=== PATIENT | female | born 1985 | race American Indian/Alaskan Native ===

== ENCOUNTER 2020-11-22 10:16 | Outpatient (REF) | payer OTHER, MEDICAID, SELFPAY ==
--- NOTE | ~2020-11-22 | XR_ITS ---
EXAMINATION: XR SHOULDER, LEFT CLINICAL INFORMATION: Pain in left shoulder COMPARISON: None TECHNIQUE: AP external rotation, Grashey, scapular Y, and axillary views of the left shoulder. FINDINGS: The bones and soft tissues are normal. No fracture. Glenohumeral and acromioclavicular alignment is anatomic with normal joint space. No abnormal soft tissue calcifications. XR/XR shoulder LT min 2V IMPRESSION: Normal left shoulder.
--- NOTE | ~2020-11-22 | XR_ITS ---
EXAMINATION: XR SCAPULA, LEFT CLINICAL INFORMATION: Shoulder pain COMPARISON: None TECHNIQUE: AP and scapular Y views of the left scapula. FINDINGS: The bones and soft tissues are normal. No scapular fracture. Glenohumeral and acromioclavicular alignment is normal. XR/XR scapula LT IMPRESSION: Normal left scapula.
--- NOTE | ~2020-11-22 | XR_ITS ---
EXAMINATION: XR CERVICAL SPINE XR THORACIC SPINE CLINICAL INFORMATION: Cervicalgia COMPARISON: None. TECHNIQUE: AP, open-mouth odontoid, lateral, and both oblique views of the cervical spine, AP and lateral views of the thoracic spine FINDINGS: Cervical: Vertebral body heights are normal without evidence of fracture. Alignment is anatomic. No spondylolisthesis there is mild loss of intervertebral disc space with endplate degenerative changes at C5-C6. Facet joints are normal. Alignment is maintained at the atlanto-axial articulation. The prevertebral soft tissues are normal. Neural foramina are patent. Thoracic: Vertebral body heights are normal. Alignment is anatomic without spondylolisthesis. Intervertebral disc heights are well-maintained. No degenerative disc disease. Paraspinal soft tissues are unremarkable. No osseous lesions are identified. XR/XR thoracic spine 2V IMPRESSION: Minimal degenerative disease of the cervical spine. Normal radiographs of the thoracic spine.
--- NOTE | ~2020-11-22 | XR_ITS ---
EXAMINATION: XR CERVICAL SPINE XR THORACIC SPINE CLINICAL INFORMATION: Cervicalgia COMPARISON: None. TECHNIQUE: AP, open-mouth odontoid, lateral, and both oblique views of the cervical spine, AP and lateral views of the thoracic spine FINDINGS: Cervical: Vertebral body heights are normal without evidence of fracture. Alignment is anatomic. No spondylolisthesis there is mild loss of intervertebral disc space with endplate degenerative changes at C5-C6. Facet joints are normal. Alignment is maintained at the atlanto-axial articulation. The prevertebral soft tissues are normal. Neural foramina are patent. Thoracic: Vertebral body heights are normal. Alignment is anatomic without spondylolisthesis. Intervertebral disc heights are well-maintained. No degenerative disc disease. Paraspinal soft tissues are unremarkable. No osseous lesions are identified. XR/XR cervical spine 2V IMPRESSION: Minimal degenerative disease of the cervical spine. Normal radiographs of the thoracic spine.
== END 2020-11-22 10:17 | disposition home or self-care (01) ==
LOC: HO.XRAY 10:16
PROVIDERS: PCP Internal Medicine; Visit Provider Nurse Practitioner Family
DX: M54.2 Cervicalgia (principal); M25.512 Pain in left shoulder; M54.9 Dorsalgia, unspecified; M89.8X1 Other specified disorders of bone, shoulder
CPT/HCPCS: 72040; 72070; 73010; 73030

== ENCOUNTER 2021-01-08 08:00 | Outpatient (RCR) | payer OTHER, SELFPAY ==
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
== END 2021-01-08 09:14 | disposition home or self-care (01) ==
LOC: HO.PTWFD 08:00
PROVIDERS: PCP Internal Medicine; Visit Provider Nurse Practitioner Family
DX: M54.2 Cervicalgia (principal); M25.512 Pain in left shoulder; M89.8X1 Other specified disorders of bone, shoulder
CPT/HCPCS: 97110; 97140; 97162; 97535

== ENCOUNTER 2021-01-29 10:05 | Outpatient (REF) | payer OTHER, SELFPAY ==
[2021-01-30 01:25] LABS: CT PCR NOT DETECTED (Not Detect.); NG PCR NOT DETECTED (Not Detect.)
[2021-01-30 10:16] LABS: BV Int Neg Control Negative (Negative); BV Int Pos Control Positive (Positive)
[2021-02-01 13:06] LABS: HPV mRNA E6/E7 rflx Not Detected (Not Detected)
== END 2021-01-29 10:06 | disposition home or self-care (01) ==
LOC: HO.LAB 10:05
PROVIDERS: PCP Internal Medicine; Visit Provider Advanced Practice Midwife
DX: Z12.4 Encounter for screening for malignant neoplasm of cervix (principal); Z11.51 Encounter for screening for human papillomavirus (HPV); Z20.2 Contact with and (suspected) exposure to infections with a predominantly sexual mode of transmission; N90.89 Other specified noninflammatory disorders of vulva and perineum
CPT/HCPCS: 87480; 87491; 87510; 87591; 87624; 87660; 88142

== ENCOUNTER → 2021-06-03 07:58 | Outpatient (BNVA) | payer OTHER, SELFPAY | PROVIDERS: PCP Internal Medicine; Visit Provider Advanced Practice Midwife | DX: Z13.89 Encounter for screening for other disorder (principal) ==

== ENCOUNTER 2021-11-21 09:42 | Outpatient (REF) | payer OTHER, SELFPAY ==
[2021-11-21 09:52] LABS: MANUAL DIFF FLAG NO
[2021-11-21 10:51] LABS: Basophils Absolute Auto 0.1 X10*3/uL (0.0-0.2); Basophils Percent Auto 0.6 % (0-2); Eosinophils Absolute Auto 0.6 X10*3/uL (0.0-0.4); Eosinophils Percent Auto 5.8 % (0-4); Hematocrit 42.5 % (37.0-47.0); Hemoglobin 14.5 g/dl (12.0-16.0); Imm Gran Abs Auto 0.05 X10*3/uL (0.00-0.03); Imm Gran Pct Auto 0.5 % (0.0-0.4); Lymphocytes Absolute Auto 2.2 X10*3/uL (1.2-4.9); Mean Corpuscular HGB Conc 34.1 g/dl (31.0-35.0); Mean Corpuscular Volume 90.8 fL (80.0-98.0); Mean Platelet Volume 11.7 fL (9.4-12.3); Monocytes Absolute Auto 0.6 X10*3/uL (0.1-1.2); Monocytes Percent Auto 5.5 % (2-11); Neutrophils Absolute Auto 6.9 x10*3/uL (2.0-8.3); Neutrophils Percent Auto 66.6 % (45-73); Platelet Count 219 X10*3/uL (160-400); Red Blood Count 4.68 X10*6/uL (4.20-5.50); Red Cell Distribution Width 12.4 % (11.0-16.0); White Blood Count 10.4 X10*3/uL (4.8-10.8)
[2021-11-21 11:23] LABS: Alanine Aminotransferase 15 U/L (0-31); Albumin Level 4.4 g/dL (3.5-5.0); Alkaline Phosphatase 74 U/L (39-117); Anion Gap 16 (12-20); Aspartate Amino Transferase 17 U/L (5-31); Bilirubin Total 0.5 mg/dL (0.0-1.0); Blood Urea Nitrogen 12 mg/dL (9-16); Calcium 9.7 mg/dL (8.4-10.2); Carbon Dioxide 25 mmol/L (22-29); Chloride 103 mmol/L (96-108); Cholesterol 251 mg/dL; Estimated Glomerular Filt Rate > 60; Glucose Fasting 88 mg/dL (60-99); HDL Cholesterol 44 mg/dL; LDL Cholesterol Calculated 178 mg/dl; Sodium 139 mmol/L (135-145); Total Protein 7.5 g/dL (6.5-8.0); Triglycerides 147 mg/dL
[2021-11-21 11:34] LABS: Vitamin D 25-OH Total 27.7 ng/mL (>30)
[2021-11-21 11:44] LABS: Appearance Urine Clear; Color Urine Yellow; Glucose Urine UA Negative (Negative); Leukocyte Esterase Urine Trace (Negative); Nitrite Urine Negative (Negative); UMIC TRIGGER UACC YES; Urine Blood Negative (Negative); Urine Ketones Negative (Negative); Urine Protein Negative (Neg-Trace)
[2021-11-21 11:53] LABS: Bacteria Urine None Seen (None Seen); Hyaline Casts Urine 0-2 /LPF (0-2); RBC Urine 0-2 /HPF (0-2); Squamous Epithelial Cell Urine 0-2 /HPF (0-2); WBC Urine 0-5 /HPF (0-5)
== END 2021-11-21 09:43 | disposition home or self-care (01) ==
LOC: HO.LAB 09:42
PROVIDERS: PCP Internal Medicine; Visit Provider Internal Medicine
DX: Z00.00 Encounter for general adult medical examination without abnormal findings (principal); E78.00 Pure hypercholesterolemia, unspecified; E55.9 Vitamin D deficiency, unspecified; M54.9 Dorsalgia, unspecified
CPT/HCPCS: 36415; 80053; 80061; 81001; 82306; 84443; 85025

== ENCOUNTER → 2022-02-25 07:58 | Outpatient (BNVA) | payer OTHER, SELFPAY | PROVIDERS: PCP Internal Medicine; Visit Provider Advanced Practice Midwife | DX: Z13.89 Encounter for screening for other disorder (principal) ==

== ENCOUNTER 2022-03-31 08:13 | Outpatient (REF) | payer OTHER, SELFPAY ==
[2022-03-31 09:10] LABS: Alanine Aminotransferase 16 U/L (0-31); Albumin Level 4.2 g/dL (3.5-5.0); Alkaline Phosphatase 75 U/L (39-117); Anion Gap 13 (12-20); Aspartate Amino Transferase 16 U/L (5-31); Bilirubin Total 0.3 mg/dL (0.0-1.0); Blood Urea Nitrogen 10 mg/dL (9-16); Calcium 9.3 mg/dL (8.4-10.2); Carbon Dioxide 28 mmol/L (22-29); Chloride 106 mmol/L (96-108); Cholesterol 239 mg/dL; Estimated Glomerular Filt Rate > 60; Glucose Fasting 99 mg/dL (60-99); HDL Cholesterol 39 mg/dL; LDL Cholesterol Calculated 159 mg/dl; Potassium 4.6 mmol/L (3.3-5.1); Sodium 142 mmol/L (135-145); Total Protein 7.2 g/dL (6.5-8.0); Triglycerides 208 mg/dL
[2022-03-31 09:27] LABS: TSH reflex Free T4 2.53 uIU/mL (0.32-4.0)
[2022-03-31 09:31] LABS: Appearance Urine Clear; Color Urine Yellow; Glucose Urine UA Negative (Negative); Leukocyte Esterase Urine Negative (Negative); Nitrite Urine Negative (Negative); PH 7.5 (5.0-9.0); Urine Blood Negative (Negative); Urine Ketones Negative (Negative); Urine Protein Negative (Neg-Trace)
== END 2022-03-31 08:14 | disposition home or self-care (01) ==
LOC: HO.LAB 08:13
PROVIDERS: PCP Internal Medicine; Visit Provider Internal Medicine
DX: Z00.00 Encounter for general adult medical examination without abnormal findings (principal); E78.00 Pure hypercholesterolemia, unspecified; R79.89 Other specified abnormal findings of blood chemistry; E78.5 Hyperlipidemia, unspecified; E55.9 Vitamin D deficiency, unspecified
CPT/HCPCS: 36415; 80053; 80061; 81003; 82306; 84443

== ENCOUNTER → 2022-04-16 08:22 | Outpatient (BNVA) | payer OTHER, SELFPAY | PROVIDERS: PCP Internal Medicine; Visit Provider Nurse Practitioner Family | DX: F07.81 Postconcussional syndrome (principal); R42 Dizziness and giddiness; H55.00 Unspecified nystagmus; G43.009 Migraine without aura, not intractable, without status migrainosus | CPT/HCPCS: 99202 ==

== ENCOUNTER 2022-05-06 12:49 | Outpatient (RCR) | payer OTHER, SELFPAY ==
[2022-05-06 12:56] VITALS: BP 116/62; PULSE 84; O2SAT 97
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
== END 2022-06-10 13:29 | disposition home or self-care (01) ==
LOC: HO.PTCHIC 12:49
PROVIDERS: PCP Internal Medicine; Visit Provider Nurse Practitioner Family
DX: R42 Dizziness and giddiness (principal); F07.81 Postconcussional syndrome; H55.00 Unspecified nystagmus
CPT/HCPCS: 97110; 97161; 97162

== ENCOUNTER 2022-05-11 08:07 | Outpatient (REF) | payer OTHER, SELFPAY ==
--- NOTE | ~2022-05-11 | MR_ITS ---
EXAMINATION: MR BRAIN WITHOUT CONTRAST CLINICAL INFORMATION: Postconcussion syndrome. COMPARISON: None available. TECHNIQUE: MRI of the brain was obtained using routine sequences without contrast. FINDINGS: No focal restricted diffusion is demonstrated to suggest acute or subacute cerebral ischemia. No evidence of acute or chronic hemorrhagic products on heme-sensitive imaging. Normal parenchymal signal characteristics. The ventricles are normal in morphology and size. No abnormal mass effect. No midline shift. Normal appearance of the pituitary gland. The cerebellar tonsils are mildly low lying, positioned 0.4 cm below the foramen magnum. The CSF space of the foramen magnum is maintained. Normal arterial and venous vascular flow voids are present. Normal, homogeneous marrow signal. Mild mucosal thickening of the paranasal sinuses. Moderate leftward nasal septal deviation with spurring. No signal abnormalities within the mastoids. MR/MR head/brain wo con IMPRESSION: 1. No acute intracranial abnormalities. 2. Mild cerebellar tonsillar ectopia. 3. No additional MRI abnormalities to explain the patient's symptoms.
== END 2022-05-11 08:08 | disposition home or self-care (01) ==
LOC: HO.MRI 08:07
PROVIDERS: PCP Internal Medicine; Visit Provider Nurse Practitioner Family
DX: F07.81 Postconcussional syndrome (principal); R42 Dizziness and giddiness; H55.00 Unspecified nystagmus
CPT/HCPCS: 70551

== ENCOUNTER 2022-06-25 11:00 | Outpatient (RCR) | payer OTHER, SELFPAY ==
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
--- NOTE | 2022-06-25 11:49 | MHC.OT.DC ---
[address] [phone] F: [phone] Occupational Therapy Discharge Note Patient Name: Lynn Flanagan Provider: Danay Mccracken Diagnosis: Post-concussion syndrome Date of Evaluation: 05/13/22 Date of Discharge: 06/25/22 Treatments to Date: 7 Cancellations to Date: No Shows to Date: Discharge Status: Achieved Goals Improved Function Independent with HEP Discharge Summary: Lynn has progressed very well in OT and met all LTG's set on admission. 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 She demonstrates improved ability to sustain attention and process information since her evaluation. Noted improvement on the [place] Cognitive Assessment, scoring 28/30 which is 'normal' cognition. She is IND with both remedial and compensatory memory strategies. When re-issed the [place] Post Concussion Questionnaire, a 28 point improvement was demonstrated overall. She rates only mind problem areas now to be occasional headaches and dizziness. Pt. has also purchased a [employer] for home exercise program to improve visual convergence and strengthen eye muscles to hopefully decrease incidence of nystagmus. At this time. Lynn has met all goals and is in agreement with discharge from OT. Electronically Signed By: Yaquelin Ayers MS OTR/L Reviewed/agree with student documentation: Therapist: Please Sign and return to therapist, thank you for your referral.
== END 2022-06-25 11:54 | disposition home or self-care (01) ==
LOC: HO.OT 11:00
PROVIDERS: PCP Internal Medicine; Visit Provider Nurse Practitioner Family
DX: F07.81 Postconcussional syndrome (principal); R42 Dizziness and giddiness; H55.00 Unspecified nystagmus
CPT/HCPCS: 97112; 97165; 97530

== ENCOUNTER → 2022-06-30 08:30 | Outpatient (BNVA) | payer OTHER, SELFPAY | PROVIDERS: PCP Internal Medicine; Visit Provider Nurse Practitioner Family | DX: F07.81 Postconcussional syndrome (principal); G43.009 Migraine without aura, not intractable, without status migrainosus; H55.00 Unspecified nystagmus; F90.9 Attention-deficit hyperactivity disorder, unspecified type; F43.10 Post-traumatic stress disorder, unspecified; F41.8 Other specified anxiety disorders; E55.9 Vitamin D deficiency, unspecified | CPT/HCPCS: 99212 ==

== ENCOUNTER 2022-10-08 10:23 | Outpatient (AMB) | payer OTHER, SELFPAY ==
[2022-10-08 10:24] VITALS: BP 126/70; PULSE 105; O2SAT 98; BMI 25.9
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
== END 2022-10-08 11:18 | disposition home or self-care (01) ==
PROVIDERS: Visit Provider Nurse Practitioner Family
DX: G43.009 Migraine without aura, not intractable, without status migrainosus (principal); F07.81 Postconcussional syndrome; F90.9 Attention-deficit hyperactivity disorder, unspecified type
CPT/HCPCS: 99214

== ENCOUNTER → 2022-10-08 10:23 | Outpatient (BNVA) | payer OTHER, SELFPAY | PROVIDERS: Visit Provider Nurse Practitioner Family | DX: F07.81 Postconcussional syndrome (principal); F90.9 Attention-deficit hyperactivity disorder, unspecified type; F43.10 Post-traumatic stress disorder, unspecified; R42 Dizziness and giddiness; G43.009 Migraine without aura, not intractable, without status migrainosus | CPT/HCPCS: 99212 ==

== ENCOUNTER 2022-10-14 09:32 | Outpatient (AMB) | payer OTHER, SELFPAY ==
[2022-10-14 09:47] VITALS: BP 116/80; PULSE 78; O2SAT 97; BMI 26.0
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
== END 2022-10-14 10:12 | disposition home or self-care (01) ==
PROVIDERS: PCP Internal Medicine; Visit Provider Internal Medicine
DX: S06.0X0S Concussion without loss of consciousness, sequela (principal); V89.2XXS Person injured in unspecified motor-vehicle accident, traffic, sequela; F90.9 Attention-deficit hyperactivity disorder, unspecified type; R49.0 Dysphonia
CPT/HCPCS: 99213

== ENCOUNTER 2022-12-29 09:37 | Outpatient (AMB) | payer OTHER, SELFPAY ==
[2022-12-29 09:53] VITALS: BP 116/80; PULSE 95; O2SAT 97; BMI 25.9
--- NOTE | 2022-12-29 09:53 | A.OFFPC_ITS ---
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: No Accompanied by: Self / Same As Patient Allergies cigarette smoke [CIGARETTE SMOKE] Allergy (Unknown, Verified 12/29/22 10:49) SHORTNESS OF BREATH Medication List - Last Reconciled 12/29/22 by Sea Russell MD dextroamphetamine-amphetamine 10 mg (Adderall) 10 mg PO BID 30 days levonorgestrel (Kyleena) intrauterine sertraline 50 mg PO DAILY sumatriptan succinate 50 - 100 mg orally at onset of headache, may repeat in 2 hrs PRN; max 2 tabs per day or 4 tabs/week (may take with Ibuprofen) 30 days Tobacco use date assessed: 12/29/22 Dental Screening Dental Screen Date: 12/29/22 Did you have a dental visit in the last 12 months?: No Did you have a dental problem in the last 6 months where you did not have access to dental care?: No Was dental information given to patient?: No HPI hyperlipidemia, migraine HPI Details Patient comes in today for her follow up visit States that she feels okay and that she has been slowly tapering down her Sertraline dosage on her own over the past few weeks as she would really like to try coming off her antidepressant if she can She is now down to 50 mg QD on her Sertraline Admits that she did not get her follow up labs done as she completely forgot about this appointment until she got a reminder call about this yesterday She denies any headaches or dizziness - states that her migraine headaches have been stable Denies any chest pains, no SOB No nausea/vomiting, no abdominal pain No change in bowel habits noted [facility] Medical History (Updated 12/29/22 @ 10:57 by Sea Russell MD) Attention deficit hyperactivity disorder (ADHD) Pure hypercholesterolemia Overweight (BMI 25.0-29.9) Vitamin D deficiency Anxiety and depression PTSD (post-traumatic stress disorder) Asthma Surgical History History of section H/O right inguinal hernia repair Family History Father No problems noted. Mother Gall stones Aneurysm Maternal Grandmother Lung cancer Son ADHD PTSD (post-traumatic stress disorder) Anxiety Social History Household Members Other:: son Housing: Apartment Alcohol intake: former Patient Tobacco Use Status: Former Tobacco user e-Cigarette/Vaping Use: Never Used Second Hand Smoke Exposure: Yes service: No Current occupational status: unemployed Sexual orientation: Straight/Heterosexual Gender identity: Female Cognitive needs: No Hearing needs: No Vision needs: Yes Questionnaire PHQ-9 Over the last 2 weeks, how often have you been bothered by any of the following problems? 1. Little interest or pleasure in doing things: not at all 2. Feeling down, depressed, or hopeless: not at all 3. Trouble falling or staying asleep, or sleeping too much: not at all 4. Feeling tired or having little energy: not at all 5. Poor appetite or overeating: not at all 6. Feeling bad about yourself - or that you are a failure or have let yourself or your family down: not at all 7. Trouble concentrating on things, such as reading the newspaper or watching television: not at all 8. Moving or speaking so slowly that other people could have noticed. Or the opp osite - being so fidgety or restless that you have been moving around a lot more than usual: not at all 9. Thoughts that you would be better off or of hurting yourself in some way: not at all Total score: 0 Depression Screening Interpretation: Negative (current Rx helping) Depression Screening Done: Yes 53157 - PHQ-9 Billing: Yes Source: Developed by Drs. Johann Garibay, Rso Garcia, Meet Reyna and colleagues, with an educational aly from [employer]. Thrive Questionnaire Date Thrive assessed: 12/29/22 I am a: Patient What is your living situation today?: I have a steady place to live Within the past 12 months, did the food you bought not last and you didn't have the money to get more?: Never true Within the past 12 months, did you worry whether your food would run out before you got money to buy more?: Never true Do you have trouble paying for medicines?: No Do you have trouble getting transportation to medical appointments?: No Do you have trouble paying your heating and electricity bill?: No Do you have trouble taking care of your child, family member or friend?: No Do you have trouble with day-to-day activities such as bathing, preparing meals, shopping, managing finances, etc.?: No Are you currently unemployed and looking for a job?: No Are you interested in more education?: No Please select the resources that you would like help with: None Currently or been in a relationship where the following occur: no concerns reported AUDIT C Alcohol Use Questionnaire (AUDIT-C) 1. How often do you have a drink containing alcohol?: Monthly or less 2. How many drinks containing alcohol do you have on a typical day when you are drinking?: 1 or 2 3. How often do you have six or more drinks on one occasion?: Never Total Score: 1 Score Reviewed/Action Taken: Yes YAHIR-7 AMB Questionnaire YAHIR-7 Date YAHIR - 7 assessed: 12/29/22 Feeling nervous, anxious, or on edge: 0 = Not at all Not being able to stop or control worryin = Not at all Worrying too much about different things: 0 = Not at all Trouble relaxin = Not at all Being so restless that it is hard to sit still: 0 = Not at all Becoming easily annoyed or irritable: 0 = Not at all Feeling afraid as if something awful might happen: 0 = Not at all Total YAHIR-7 score (0-4 normal; 5-9 mild; 10-14 moderate; 15-21 severe): 0 Source: Developed by Drs. Johann Garibay, Ros Garcia, Meet Reyna and colleagues, with an educational aly from [employer]. Review of Systems Const Denies chills, Denies fatigue, Denies fever(s) and Denies headache(s) ENT Denies dysphagia, Denies dizziness, Denies otalgia, Denies headache(s), Denies neck pain, Denies odynophagia and Denies sore throat Card Denies chest pain, Denies palpitations and Denies dyspnea Resp Denies cough and Denies dyspnea GI Denies abdominal pain, Denies constipation, Denies dysphagia, Denies heartburn, Denies diarrhea, Denies nausea, Denies odynophagia and Denies vomiting Denies difficulty voiding, Denies nocturia and Denies dysuria Musc Denies neck pain Neuro Denies dizziness and Denies headache(s) Psych Denies anxiety, Denies depression and Reports difficulty concentrating (mild) Endo Denies fatigue and Denies palpitations Physical exam (Primary Care) Vital Signs: Last Vital Signs Pulse 95 12/29/22 09:53 BP 116/80 12/29/22 09:53 Pulse Ox 97 12/29/22 09:53 Oxygen Delivery Method Room Air 12/29/22 09:53 BMI result Body Mass Index 25.9 Tobacco/Smoking Status: Tobacco use Status Tobacco use date assessed 12/29/22 12/29/22 09:55 Patient Tobacco Use Status Former Tobacco user 12/29/22 09:55 e-Cigarette/Vaping Use Never Used 12/29/22 09:55 PHQ-9: PHQ-9 Score PHQ-9: Total score 0 12/29/22 10:06 Depression Screening Interpretation: Negative (current Rx helping) Thrive Assessment: Date of Thrive Assessment Date Thrive assessed 12/29/22 12/29/22 09:55 Currently or been in a relationship where the following occur: no concerns reported Const General: no acute distress and alert Neck Neck: Yes no lymphadenopathy and Yes supple Resp Auscultation: clear to auscultation bilaterally, no rales and no wheezes Cardio Rate: regular rate Rhythm: regular rhythm Heart sounds: no murmurs GI Palpation (GI): Soft to palpation, nontender and No hepatosplenomegaly present Extrem General: Yes no clubbing, cyanosis or edema Assessment and Plan Assessment & Plan (1) Pure hypercholesterolemia: Code(s): E78.00 - Pure hypercholesterolemia, unspecified Plan: Patient is reminded that her cholesterol numbers back in March 2022 were still elevated although they have improved slightly from her numbers in October 2021 Reinforced low cholesterol diet; patient prefers to NOT take any Rx for her cholesterol and would like to continue working on her diet Will have patient recheck her labs in 3 months for follow up - her previous lab orders are updated and she can just use these for her next lab draw; she is reminded to try to get these done at least a week before her appointment date (2) Asthma: Code(s): J45.909 - Unspecified asthma, uncomplicated Qualifiers: Asthma severity: mild Asthma persistence: intermittent Asthma complication type: uncomplicated Qualified Code(s): J45.20 - Mild intermittent asthma, uncomplicated Plan: Stable - has not had to use any inhalers at all in a while now (3) Vitamin D deficiency: Code(s): E55.9 - Vitamin D deficiency, unspecified Plan: Continue Vitamin D3 1000 units QD Will recheck her Vitamin D level in 3 months for follow up (4) Attention deficit hyperactivity disorder (ADHD): Code(s): F90.9 - Attention-deficit hyperactivity disorder, unspecified type Qualifiers: Attention deficit-hyperactivity disorder type: unspecified Qualified Code(s): F90.9 - Attention-deficit hyperactivity disorder, unspecified type Plan: Was evaluated by neuropsychiatry as part of her postconcussion workup last year and ended also being diagnosed reportedly with ADHD Was seeing psychiatry at [facility] previously but currently has no psychiatry MD to follow up with Is currently still on Methylphenidate 10 mg BID (5) PTSD (post-traumatic stress disorder): Code(s): F43.10 - Post-traumatic stress disorder, unspecified Plan: Continue Sertraline 50 mg QD States that she has been gradually cutting her dose back on her own, and she presently appears to be doing okay on her current 50 mg daily dose - is hoping to eventually be able to come off Sertraline completely (6) Overweight (BMI 25.0-29.9): Code(s): E66.3 - Overweight Plan: Reinforced diet/exercise as tolerated/lose weight Plan Follow up in 3 months Coding Level of Care Code Est Pt Level 3 (40229) Diagnoses Pure hypercholesterolemia E78.00 Mild intermittent asthma without complication J45.20 Asthma severity: mild Asthma persistence: intermittent Asthma complication type: uncomplicated Vitamin D deficiency E55.9 Attention deficit hyperactivity disorder (ADHD), unspecified ADHD type F90.9 Attention deficit-hyperactivity disorder type: unspecified PTSD (post-traumatic stress disorder) F43.10 Overweight (BMI 25.0-29.9) E66.3
== END 2022-12-29 10:53 | disposition home or self-care (01) ==
PROVIDERS: PCP Internal Medicine; Visit Provider Internal Medicine
DX: E78.00 Pure hypercholesterolemia, unspecified (principal); J45.20 Mild intermittent asthma, uncomplicated; E55.9 Vitamin D deficiency, unspecified; F90.9 Attention-deficit hyperactivity disorder, unspecified type; F43.10 Post-traumatic stress disorder, unspecified; E66.3 Overweight
CPT/HCPCS: 99213

== ENCOUNTER 2023-01-07 08:52 | Outpatient (AMB) | payer OTHER, SELFPAY ==
--- NOTE | 2023-01-07 08:59 | MHC.OFFVIS ---
Intake Vital Signs 01/07/23 09:01 Height 5 ft 7 in Weight 162 lb BMI 25.4 BP 112/78 Blood Pressure Location Rt brachial Position Sitting Intake Visit Reasons: 3 m f/u appt /Lvm Intake Note: patient presents for 3 month follow up. patient states I've gone down from 150 mg of sertraline down 50mg now. Allergies cigarette smoke [CIGARETTE SMOKE] Allergy (Unknown, Verified 01/07/23 09:05) SHORTNESS OF BREATH Medication List - Last Reconciled 01/07/23 by NICK Quiroga dextroamphetamine-amphetamine 10 mg (Adderall) 10 mg PO BID 30 days levonorgestrel (Kyleena) intrauterine sertraline 50 mg PO DAILY sumatriptan succinate 50 - 100 mg orally at onset of headache, may repeat in 2 hrs PRN; max 2 tabs per day or 4 tabs/week (may take with Ibuprofen) 30 days HPI HPI Comments History of Present Illness Details 37-yr-old female presents for f/u visit. Pt denies any significant interval medical changes. Pt has self-reduced her sertraline from 100mg to 50mg qd approx 3 weeks ago. She did this in attempt to be able to cry and experience emotions. She has been able to cry again, which she is happy about. She has felt a bit more overwhelmed. She is seeing her therapist. Has not established care w/ a psychiatrist yet. Since the last visit, pt started Aderall 7.5mg bid which we then increased to 10mg bid for better effect. She states the Adderall 10mg bid is helping. She has less intrusive thoughts. She is better able to sit though a meeting. Today, she states that other people in our lobby were talking about politics/masks etc, which she did not agree with, but was able to not engagae with them- which she would have done before. Still has some word finding difficulties. Reports migraines are stable- 1-3 days per week. Often a/w neck tightness. May be triggered by eye strain, and less so cognitive fatigue. Sumatriptan is usually effective, but makes her very sleepy so she cannot drive or work. [facility] Medical History (Updated 12/29/22 @ 10:57 by Sea Russell MD) Attention deficit hyperactivity disorder (ADHD) Pure hypercholesterolemia Overweight (BMI 25.0-29.9) Vitamin D deficiency Anxiety and depression PTSD (post-traumatic stress disorder) Asthma Surgical History History of section H/O right inguinal hernia repair Family History Father No problems noted. Mother Gall stones Aneurysm Maternal Grandmother Lung cancer Son ADHD PTSD (post-traumatic stress disorder) Anxiety Social History Household Members Other:: son Housing: Apartment Alcohol intake: former Patient Tobacco Use Status: Former Tobacco user e-Cigarette/Vaping Use: Never Used Second Hand Smoke Exposure: Yes service: No Current occupational status: unemployed Sexual orientation: Straight/Heterosexual Gender identity: Female Cognitive needs: No Hearing needs: No Vision needs: Yes Review of Systems Const All systems reviewed & are unremarkable except as noted in HPI and below Physical Exam Vital Signs: Last Vital Signs BP 112/78 01/07/23 09:01 BMI result Body Mass Index 25.4 Const General: cooperative and no acute distress Orientation/consciousness: patient oriented x3 HEENT Head: Yes normocephalic Resp Effort & Inspection: normal respiratory effort and able to speak in complete sentences Neuro General: patient oriented x3, gait normal and CN's II-XI intact bilaterally Cognition (Neuro): normal cognition Motor exam (neuro): 5/5 motor strength present throughout Psych Other: Pt is better able to sit through today's visit, although still presents with high energy. She is ela apt to interrupt. Appearance: grossly normal Mental Status: mental status grossly normal Speech and movement: Normal speech and movement present Attitude: cooperative Thought process: Normal thought process present Thought content: Normal thought content present Assessment & Plan Assessment & Plan (1) Attention deficit hyperactivity disorder (ADHD): Code(s): F90.9 - Attention-deficit hyperactivity disorder, unspecified type Qualifiers: Attention deficit-hyperactivity disorder type: unspecified Qualified Code(s): F90.9 - Attention-deficit hyperactivity disorder, unspecified type (2) Postconcussive syndrome: Code(s): F07.81 - Postconcussional syndrome (3) Anxiety and depression: Code(s): F41.9 - Anxiety disorder, unspecified; F32.9 - Major depressive disorder, single episode, unspecified (4) Migraine without aura: Comment: post-traumatic Code(s): G43.009 - Migraine without aura, not intractable, without status migrainosus Plan For overall postconcussive management: Continue optimizing good self-care, including but not limited to maintaining a healthy diet,? adequate fluid intake, adequate sleep, and engaging in regular physical activity. ? For ADHD/postconcussion syndrome: Continue Adderall 10mg bid. Pt has lowered her dose of Sertraline to 50mg qd- I would not decrease further at this point. Encouraged pt to read/listen to resources on adult ADHD. Pt states she cannot be seen at [facility] as she has a therapist she has been seeing for 8 yrs- and they will not see her if she does not see one of their therapists. Will request psychiatry referral elsewhere. Previous med trials: Methylphenidate 10mg bid- ineffective ? For acute headache treatment: Hold Sumatriptan. Trial Rizatriptan 5-10mg at onset of migraine, may repeat in 2 hrs. Previous acute migraine medication trials: Sumatriptan- causes sleepiness Acute migraine medication contraindications: None at this time ? For headache prevention medication: Hold Riboflavin and Magnesium- as pt has already had reduction in her headache burden. Previous migraine prevention medication trials: None Migraine prevention medication contraindications: None at this time ? f/u in 3-4 months or sooner prn. Orders: Referrals Psychiatry Referral F07.81 - Postconcussional syndrome, F32.9 - Major depressive disorder, single episode, unspecified, F41.9 - Anxiety disorder, unspecified, F90.9 - Attention-deficit hyperactivity disorder, unspecified type Medications: New rizatriptan max 2 tabs per day or 4 tabs per week 5 - 10 mg (0.5 - 1 x 10 mg) PO Q2H 21 days PRN 12 tabs 3RF migraine headache Coding Level of Care Code Est Pt Level 4 (06293) Diagnoses Attention deficit hyperactivity disorder (ADHD), unspecified ADHD type F90.9 Attention deficit-hyperactivity disorder type: unspecified Postconcussive syndrome F07.81 Anxiety and depression F41.9; F32.9 Migraine without aura G43.009
[2023-01-07 09:01] VITALS: BP 112/78; BMI 25.4
== END 2023-01-07 09:47 | disposition home or self-care (01) ==
PROVIDERS: PCP Internal Medicine; Visit Provider Nurse Practitioner Family
DX: F90.9 Attention-deficit hyperactivity disorder, unspecified type (principal); F07.81 Postconcussional syndrome; F41.9 Anxiety disorder, unspecified; F32.9 Major depressive disorder, single episode, unspecified; G43.009 Migraine without aura, not intractable, without status migrainosus
CPT/HCPCS: 99214

== ENCOUNTER → 2023-01-07 08:52 | Outpatient (BNVA) | payer OTHER, SELFPAY | PROVIDERS: PCP Internal Medicine; Visit Provider Nurse Practitioner Family | DX: F90.9 Attention-deficit hyperactivity disorder, unspecified type (principal); F07.81 Postconcussional syndrome; F41.9 Anxiety disorder, unspecified; F32.9 Major depressive disorder, single episode, unspecified; G43.009 Migraine without aura, not intractable, without status migrainosus | CPT/HCPCS: 99212 ==

== ENCOUNTER 2023-03-02 08:34 | Outpatient (AMB) | payer OTHER, SELFPAY ==
--- NOTE | 2023-03-02 08:36 | MHC.OFFVIS ---
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 Doing well with concerns: Considering future without a partner wondering what her options are. She tries to eat healthy and stays active with exercise. Regular monthly menses. Currently is not sexually active. She denies vaginal itching and irritation. STI screening offered; she declines. Denies family history of breast, ovarian or colon cancer. Last pap smear 2020, negative. [facility] Medical History Attention deficit hyperactivity disorder (ADHD) Pure hypercholesterolemia Overweight (BMI 25.0-29.9) Vitamin D deficiency Anxiety and depression PTSD (post-traumatic stress disorder) Asthma Surgical History History of section H/O right inguinal hernia repair Family History Father No problems noted. Mother Gall stones Aneurysm Maternal Grandmother Lung cancer Son ADHD PTSD (post-traumatic stress disorder) Anxiety Social History Household Members Other:: son Housing: Apartment Alcohol intake: former Patient Tobacco Use Status: Former Tobacco user e-Cigarette/Vaping Use: Never Used Second Hand Smoke Exposure: Yes service: No Current occupational status: unemployed Sexual orientation: Straight/Heterosexual Gender identity: Female Cognitive needs: No Hearing needs: No Vision needs: Yes Female Reproductive History Menstrual control method: progestin IUCD (Kyleena 11/2018) Total pregnancies: 3 Full term: 1 Number of Living Children: 1 Ab induced: 1 Ab spontaneous: 1 Date of last pap smear: 01/29/21 (neg pap and hpv) Review of Systems Const All systems reviewed & are unremarkable except as noted in HPI and below Reports as per HPI Eyes Reports no additional complaints ENT Reports no additional complaints Card Reports no additional complaints Resp Reports no additional complaints GI Reports as per HPI and Reports no additional complaints Reports as per HPI Musc Reports no additional complaints Skin/Breast Reports as per HPI Neuro Reports no additional complaints Psych Reports no additional complaints Endo Reports no additional complaints Jim/Lymph Reports no additional complaints Aller/Immun Reports no additional complaints Physical Exam Vital Signs: Last Vital Signs BP 112/70 03/02/23 08:38 BMI result Body Mass Index 25.2 Const General: cooperative, healthy appearing, no acute distress, well developed and alert Orientation/consciousness: patient oriented x3 HEENT Head: Yes normal to inspection Eyes General: appearance normal, both eyes and all related structures Neck Neck: Yes normal visual inspection Thyroid: Thyroid normal Chest Chest palpation & inspection: normal inspection of the chest and other (no puckering, dimpling, peau de orange, retraction, discharge, masses) Breast/axilla inspection: normal inspection of the breasts Breast/axilla palpation: normal palpation of the breasts Resp Effort & Inspection: normal respiratory effort GI Inspection: Yes normal to inspection Palpation (GI): Soft to palpation Rectal Exam - Female: deferred General: Yes bladder normal to palpation External Female Exam: normal external appearance and normal appearance of the urethra Speculum Exam - Vagina: normal appearance of the vagina, normal palpation and normal vaginal discharge Speculum Exam - Cervix: normal appearance of the cervix and normal palpation Bimanual exam- vagina & uterus: normal bimanual exam, normal palpation, uterine size normal, bladder normal to palpation, normal palpation and non-tender Bimanual Exam- Adnexa, other: no masses Skin General skin exam: no rashes or lesions noted Rashes: no rashes Neuro General: patient oriented x3 Cognition (Neuro): normal cognition Extrem General: Yes normal to inspection Psych Attitude: cooperative Thought process: Normal thought process present Assessment & Plan Assessment & Plan (1) Encounter for well woman exam with routine gynecological exam: Code(s): Z01.419 - Encounter for gynecological examination (general) (routine) without abnormal findings Plan Discussed: Current recommendations for pap smears per ASCCP guidelines. Breast awareness and periodic breast exams. Maintain a healthy lifestyle including a well balanced diet and routine exercise. Use condoms for STI. Consider infertility referral when she decides if that is her path. Luis expires in November patient aware no longer productive for prevention after that point and can return to the office any time for another IUD if desired. All of her questions and concerns were addressed to the best of my ability. 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 This note is constructed using voice recognition software. While every effort has been made to ensure accuracy, buckle strap puncher errors may have been included. Coding Level of Care Code Est Pt Prev Care 18-39y(83132) Diagnoses Encounter for well woman exam with routine gynecological exam Z01.419
[2023-03-02 08:38] VITALS: BP 112/70; BMI 25.2
== END 2023-03-02 09:04 | disposition home or self-care (01) ==
LOC: HO.HWS 08:34
PROVIDERS: PCP Internal Medicine; Visit Provider Advanced Practice Midwife
DX: Z01.419 Encounter for gynecological examination (general) (routine) without abnormal findings (principal)
CPT/HCPCS: 99395

== ENCOUNTER → 2023-03-02 08:34 | Outpatient (BNVA) | payer OTHER, SELFPAY | PROVIDERS: PCP Internal Medicine; Visit Provider Advanced Practice Midwife | DX: Z01.419 Encounter for gynecological examination (general) (routine) without abnormal findings (principal) | CPT/HCPCS: 99395 ==

== ENCOUNTER 2023-03-31 11:08 | Outpatient (AMB) | payer OTHER, SELFPAY ==
[2023-03-31 11:09] VITALS: BP 120/86; PULSE 72; O2SAT 98; BMI 25.7
--- NOTE | 2023-03-31 11:09 | A.OFFPC_ITS ---
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 Accompanied by: Self / Same As Patient Allergies cigarette smoke [CIGARETTE SMOKE] Allergy (Unknown, Verified 06/02/23 15:10) SHORTNESS OF BREATH Medication List - Last Reconciled 03/31/23 by Sea Russell MD dextroamphetamine-amphetamine 10 mg (Adderall) 10 mg PO BID 30 days levonorgestrel (Kyleena) intrauterine rizatriptan 5 - 10 mg (0.5 - 1 x 10 mg) PO Q2H PRN 21 days sertraline 50 mg PO DAILY Ventolin HFA 90 mcg/actuation (albuterol sulfate) 2 puffs inhalation Q6H PRN 30 days NS Tobacco use date assessed: 03/31/23 Dental Screening Dental Screen Date: 03/31/23 Did you have a dental visit in the last 12 months?: No Did you have a dental problem in the last 6 months where you did not have access to dental care?: No Was dental information given to patient?: No HPI hyperlipidemia, migraine HPI Details Patient comes in today for her follow up visit States that she feels okay She denies any headaches or dizziness Denies any chest pains, no SOB No nausea/vomiting, no abdominal pain No change in bowel habits noted Had her follow up labs done a earlier this morning - to discuss her results [facility] Medical History Attention deficit hyperactivity disorder (ADHD) Pure hypercholesterolemia Overweight (BMI 25.0-29.9) Vitamin D deficiency Anxiety and depression PTSD (post-traumatic stress disorder) Asthma Surgical History History of section H/O right inguinal hernia repair Family History Father No problems noted. Mother Gall stones Aneurysm Maternal Grandmother Lung cancer Son ADHD PTSD (post-traumatic stress disorder) Anxiety Social History Household Members Other:: son Housing: Apartment Alcohol intake: former Patient Tobacco Use Status: Former Tobacco user e-Cigarette/Vaping Use: Never Used Second Hand Smoke Exposure: Yes service: No Current occupational status: unemployed Sexual orientation: Straight/Heterosexual Gender identity: Female Cognitive needs: No Hearing needs: No Vision needs: Yes (Glasses) Questionnaire PHQ-9 Over the last 2 weeks, how often have you been bothered by any of the following problems? 1. Little interest or pleasure in doing things: not at all 2. Feeling down, depressed, or hopeless: not at all 3. Trouble falling or staying asleep, or sleeping too much: not at all 4. Feeling tired or having little energy: not at all 5. Poor appetite or overeating: not at all 6. Feeling bad about yourself - or that you are a failure or have let yourself or your family down: not at all 7. Trouble concentrating on things, such as reading the newspaper or watching television: not at all 8. Moving or speaking so slowly that other people could have noticed. Or the opposite - being so fidgety or restless that you have been moving around a lot more than usual: not at all 9. Thoughts that you would be better off or of hurting yourself in some way: not at all Total score: 0 Depression Screening Interpretation: Negative (current Rx helping) Depression Screening Done: Yes 95088 - PHQ-9 Billing: Yes Source: Developed by Drs. Johann Garibay, Ros Garcia, Meet Reyna and colleagues, with an educational aly from [employer]. Thrive Questionnaire Date Thrive assessed: 03/31/23 I am a: Patient What is your living situation today?: I have a steady place to live Within the past 12 months, did the food you bought not last and you didn't have the money to get more?: Never true Within the past 12 months, did you worry whether your food would run out before you got money to buy more?: Never true Do you have trouble paying for medicines?: No Do you have trouble getting transportation to medical appointments?: No Do you have trouble paying your heating and electricity bill?: No Do you have trouble taking care of your child, family member or friend?: No Do you have trouble with day-to-day activities such as bathing, preparing meals, shopping, managing finances, etc.?: No Are you currently unemployed and looking for a job?: No Are you interested in more education?: No Please select the resources that you would like help with: None Currently or been in a relationship where the following occur: no concerns reported THRIVE Score: 0 AUDIT C Alcohol Use Questionnaire (AUDIT-C) 1. How often do you have a drink containing alcohol?: Monthly or less 2. How many drinks containing alcohol do you have on a typical day when you are drinking?: 1 or 2 3. How often do you have six or more drinks on one occasion?: Never Total Score: 1 Score Reviewed/Action Taken: Yes YAHIR-7 AMB Questionnaire YAHIR-7 Date YAHIR - 7 assessed: 03/31/23 Feeling nervous, anxious, or on edge: 0 = Not at all Not being able to stop or control worryin = Not at all Worrying too much about different things: 0 = Not at all Trouble relaxin = Not at all Being so restless that it is hard to sit still: 0 = Not at all Becoming easily annoyed or irritable: 0 = Not at all Feeling afraid as if something awful might happen: 0 = Not at all Total YAHIR-7 score (0-4 normal; 5-9 mild; 10-14 moderate; 15-21 severe): 0 Source: Developed by Drs. Johann Garibay, Ros Garcia, Meet Reyna and colleagues, with an educational aly from [employer]. Review of Systems Const Denies chills, Denies fatigue, Denies fever(s) and Denies headache(s) ENT Denies dysphagia, Denies dizziness, Denies otalgia, Denies headache(s), Denies neck pain (but neck muscles feel tight at times), Denies odynophagia and Denies sore throat Card Denies chest pain, Denies palpitations and Denies dyspnea Resp Denies cough and Denies dyspnea GI Denies abdominal pain, Denies constipation, Denies dysphagia, Denies heartburn, Denies diarrhea, Denies nausea, Denies odynophagia and Denies vomiting Denies difficulty voiding, Denies nocturia and Denies dysuria Musc Denies back pain and Denies neck pain (but neck muscles feel tight at times) Skin/Breast Denies rash Neuro Denies dizziness and Denies headache(s) Psych Denies anxiety, Denies depression and Reports difficulty concentrating (mild) Endo Denies fatigue and Denies palpitations Physical exam (Primary Care) Vital Signs: Last Vital Signs Pulse 72 03/31/23 11:09 BP 120/86 03/31/23 11:09 Pulse Ox 98 03/31/23 11:09 Oxygen Delivery Method Room Air 03/31/23 11:09 BMI result Body Mass Index 25.7 Tobacco/Smoking Status: Tobacco use Status Tobacco use date assessed 03/31/23 03/31/23 11:15 Patient Tobacco Use Status Former Tobacco user 03/31/23 11:15 e-Cigarette/Vaping Use Never Used 03/31/23 11:15 PHQ-9: PHQ-9 Score PHQ-9: Total score 0 03/31/23 11:48 Depression Screening Interpretation: Negative (current Rx helping) Thrive Assessment: Date of Thrive Assessment Date Thrive assessed 03/31/23 03/31/23 11:15 Currently or been in a relationship where the following occur: no concerns reported Const General: no acute distress and alert HENMT Ears: TM's normal bilaterally and EAC's normal Throat: Yes posterior oropharynx normal and Yes tonsils normal Neck Neck: Yes no lymphadenopathy and Yes supple Thyroid: Thyroid normal Resp Auscultation: clear to auscultation bilaterally, no rales and no wheezes Cardio Rate: regular rate Rhythm: regular rhythm Heart sounds: no murmurs GI Palpation (GI): Soft to palpation and nontender Auscultation: normal bowel sounds General: Yes no CVA tenderness Back/Spine/Pelvis Back: no CVA tenderness Extrem General: Yes no clubbing, cyanosis or edema Results Reviewed Results Reviewed: Laboratory Tests 11/21/21 03/31/22 03/31/22 09:51 08:22 08:22 Sodium Potassium Creatinine Estimated GFR Fasting Glucose Calcium AST ALT Triglycerides Cholesterol 251 LDL Cholesterol, Calc 178 HDL Cholesterol 25-OH Vitamin D Total TSH Ur Specific [place] 1.020 Urine Protein Negative Urine Glucose (UA) Negative Urine Blood Negative Urine Nitrite Negative Ur Leukocyte Esterase Negative 03/31/22 03/31/22 03/31/22 08:24 08:24 08:24 Sodium 142 Potassium 4.6 Creatinine 0.69 Estimated GFR > 60 Fasting Glucose 99 Calcium 9.3 AST 16 ALT 16 Triglycerides 208 Cholesterol 239 LDL Cholesterol, Calc 159 HDL Cholesterol 39 25-OH Vitamin D Total 36.0 TSH 2.53 Ur Specific [place] Urine Protein Urine Glucose (UA) Urine Blood Urine Nitrite Ur Leukocyte Esterase Assessment and Plan Assessment & Plan (1) Pure hypercholesterolemia: Code(s): E78.00 - Pure hypercholesterolemia, unspecified Plan: Results of her labs done earlier this morning reviewed and discussed with patient - she is advised that her cholesterol numbers have improved slightly from previous Reinforced low cholesterol diet; patient prefers to continue working on diet modification and NOT take any Rx for her cholesterol at this time Will have patient recheck her labs and fasting lipids in 6 months for follow up (2) Asthma: Code(s): J45.909 - Unspecified asthma, uncomplicated Qualifiers: Asthma severity: mild Asthma persistence: intermittent Asthma complication type: uncomplicated Qualified Code(s): J45.20 - Mild intermittent asthma, uncomplicated Plan: Stable - states that she has not had to use any of her inhalers in a while now (3) Vitamin D deficiency: Code(s): E55.9 - Vitamin D deficiency, unspecified Plan: Corrected - continue Vitamin D3 1000 units QD (4) Attention deficit hyperactivity disorder (ADHD): Code(s): F90.9 - Attention-deficit hyperactivity disorder, unspecified type Qualifiers: Attention deficit-hyperactivity disorder type: unspecified Qualified Code(s): F90.9 - Attention-deficit hyperactivity disorder, unspecified type Plan: She was evaluated by neuropsychiatry as part of her postconcussion workup last year and she ended up being diagnosed reportedly with ADHD Was seeing psychiatry at [facility] previously but currently has no psychiatry MD to follow up with She is currently still on Methylphenidate 10 mg BID (5) PTSD (post-traumatic stress disorder): Code(s): F43.10 - Post-traumatic stress disorder, unspecified Plan: Continue Sertraline 50 mg QD States that she has been gradually cutting her dose back on her own, and she presently appears to be doing okay on her current 50 mg daily dose - is hoping to eventually be able to come off Sertraline completely (6) Overweight (BMI 25.0-29.9): Code(s): E66.3 - Overweight Plan: Reinforced diet/exercise as tolerated/lose weight Plan Follow up in 6 months Coding Level of Care Code Est Pt Level 4 (11370) Diagnoses Pure hypercholesterolemia E78.00 Mild intermittent asthma without complication J45.20 Asthma severity: mild Asthma persistence: intermittent Asthma complication type: uncomplicated Vitamin D deficiency E55.9 Attention deficit hyperactivity disorder (ADHD), unspecified ADHD type F90.9 Attention deficit-hyperactivity disorder type: unspecified PTSD (post-traumatic stress disorder) F43.10 Overweight (BMI 25.0-29.9) E66.3
== END 2023-03-31 11:53 | disposition home or self-care (01) ==
PROVIDERS: PCP Internal Medicine; Visit Provider Internal Medicine
DX: E78.00 Pure hypercholesterolemia, unspecified (principal); J45.20 Mild intermittent asthma, uncomplicated; E55.9 Vitamin D deficiency, unspecified; F90.9 Attention-deficit hyperactivity disorder, unspecified type; F43.10 Post-traumatic stress disorder, unspecified; E66.3 Overweight
CPT/HCPCS: 99214

== ENCOUNTER 2023-05-03 08:56 | Outpatient (AMB) | payer OTHER, SELFPAY ==
--- NOTE | 2023-05-03 09:11 | A.OFFVIS_ITS ---
Intake Vital Signs 05/03/23 09:12 05/03/23 09:20 Height 5 ft 7 in Weight 157 lb BMI 24.6 24.6 BP 106/80 Blood Pressure Location Rt brachial Position Sitting Pulse 86 Pulse Source Pulse Oximeter Pulse Oximetry (%) 97 Oxygen Delivery Method Room Air Intake Visit Reasons: 4m follow up- LVM w/address Intake Note: Patient to presents for 4 month follow up. I saw [facility] and got an evaluation Allergies cigarette smoke [CIGARETTE SMOKE] Allergy (Unknown, Verified 05/03/23 09:15) SHORTNESS OF BREATH COUNTS INCLUDE 234 BEDS AT THE [facility] Medical History Attention deficit hyperactivity disorder (ADHD) Pure hypercholesterolemia Overweight (BMI 25.0-29.9) Vitamin D deficiency Anxiety and depression PTSD (post-traumatic stress disorder) Asthma Surgical History History of section H/O right inguinal hernia repair Family History Father No problems noted. Mother Gall stones Aneurysm Maternal Grandmother Lung cancer Son ADHD PTSD (post-traumatic stress disorder) Anxiety Social History Household Members Other:: son Housing: Apartment Alcohol intake: former Patient Tobacco Use Status: Former Tobacco user e-Cigarette/Vaping Use: Never Used Second Hand Smoke Exposure: Yes service: No Current occupational status: unemployed Sexual orientation: Straight/Heterosexual Gender identity: Female Cognitive needs: No Hearing needs: No Vision needs: Yes Physical Exam Vital Signs: Last Vital Signs Pulse 86 05/03/23 09:12 BP 106/80 05/03/23 09:12 Pulse Ox 97 05/03/23 09:12 Oxygen Delivery Method Room Air 05/03/23 09:12 BMI result Body Mass Index 24.6 Coding
[2023-05-03 09:12] VITALS: BP 106/80; PULSE 86; O2SAT 97; BMI 24.6
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
[2023-05-03 09:20] VITALS: BMI 24.6
== END 2023-05-03 09:58 | disposition home or self-care (01) ==
PROVIDERS: PCP Internal Medicine; Visit Provider Nurse Practitioner Family
DX: G44.309 Post-traumatic headache, unspecified, not intractable (principal); F07.81 Postconcussional syndrome; F90.9 Attention-deficit hyperactivity disorder, unspecified type; H55.00 Unspecified nystagmus
CPT/HCPCS: 99214

== ENCOUNTER → 2023-05-03 08:56 | Outpatient (BNVA) | payer OTHER, SELFPAY | PROVIDERS: PCP Internal Medicine; Visit Provider Nurse Practitioner Family | DX: F90.9 Attention-deficit hyperactivity disorder, unspecified type (principal); F07.81 Postconcussional syndrome; G43.009 Migraine without aura, not intractable, without status migrainosus; H55.00 Unspecified nystagmus | CPT/HCPCS: 99212 ==

== ENCOUNTER 2023-06-02 14:51 | Outpatient (AMB) | payer OTHER, SELFPAY ==
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
[2023-06-02 14:56] VITALS: BP 100/72; PULSE 100; O2SAT 96; BMI 24.7
== END 2023-06-02 15:34 | disposition home or self-care (01) ==
PROVIDERS: PCP Internal Medicine; Visit Provider Internal Medicine
DX: S06.0X0S Concussion without loss of consciousness, sequela (principal); V89.2XXS Person injured in unspecified motor-vehicle accident, traffic, sequela; Z04.2 Encounter for examination and observation following work accident
CPT/HCPCS: 99214

== ENCOUNTER 2023-08-04 15:21 | Outpatient (AMB) | payer OTHER, SELFPAY ==
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
[2023-08-04 15:30] VITALS: BP 96/74; PULSE 85; O2SAT 97; BMI 24.1
== END 2023-08-04 16:30 | disposition home or self-care (01) ==
PROVIDERS: PCP Internal Medicine; Visit Provider Nurse Practitioner Family
DX: F90.9 Attention-deficit hyperactivity disorder, unspecified type (principal); F07.81 Postconcussional syndrome; G44.309 Post-traumatic headache, unspecified, not intractable
CPT/HCPCS: 99214

== ENCOUNTER → 2023-08-04 15:21 | Outpatient (BNVA) | payer OTHER, SELFPAY | PROVIDERS: PCP Internal Medicine; Visit Provider Nurse Practitioner Family | DX: F90.9 Attention-deficit hyperactivity disorder, unspecified type (principal); F07.81 Postconcussional syndrome; G43.009 Migraine without aura, not intractable, without status migrainosus | CPT/HCPCS: 99212 ==

== ENCOUNTER 2023-08-26 10:10 | Outpatient (REF) | payer OTHER, SELFPAY ==
[2023-08-26 11:03] LABS: Hematocrit 42.1 % (37.0-47.0); Hemoglobin 14.6 g/dl (12.0-16.0); Mean Corpuscular HGB Conc 34.7 g/dl (31.0-35.0); Mean Corpuscular Hemoglobin 30.9 pg (27.0-33.0); Mean Platelet Volume 10.8 fL (9.4-12.3); Platelet Count 235 X10*3/uL (160-400); Red Blood Count 4.73 X10*6/uL (4.20-5.50); White Blood Count 9.8 X10*3/uL (4.8-10.8)
[2023-08-26 11:38] LABS: HCG Quantitative < 2 mIU/mL; Thyroid Stimulating Hormone 1.04 uIU/mL (0.32-4.0)
== END 2023-08-26 10:11 | disposition home or self-care (01) ==
LOC: HO.LAB 10:10
PROVIDERS: PCP Internal Medicine; Visit Provider Advanced Practice Midwife
DX: R23.2 Flushing (principal); N92.1 Excessive and frequent menstruation with irregular cycle; N91.2 Amenorrhea, unspecified
CPT/HCPCS: 36415; 84443; 84702; 85027; 99212

== ENCOUNTER 2023-08-26 10:10 | Outpatient (AMB) | payer OTHER, SELFPAY ==
[2023-08-26 10:27] VITALS: BP 102/60; BMI 23.9
--- NOTE | 2023-08-26 10:27 | A.OFFVIS_ITS ---
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 She had the Kyleena IUD inserted on 12/09/2018. She currently does not have any menstrual cycles in the last year and admits to hot flashes. She has considering having a future currently has no intimate partner. She has a 10-year-old and was hoping for another child when she still could. [facility]LY [facility], [facility] Medical History Attention deficit hyperactivity disorder (ADHD) Pure hypercholesterolemia Overweight (BMI 25.0-29.9) Vitamin D deficiency Anxiety and depression PTSD (post-traumatic stress disorder) Asthma Surgical History History of section H/O right inguinal hernia repair Family History Father No problems noted. Mother Gall stones Aneurysm Maternal Grandmother Lung cancer Son ADHD PTSD (post-traumatic stress disorder) Anxiety Social History Household Members Other:: son Housing: Apartment Alcohol intake: former Patient Tobacco Use Status: Former Tobacco user e-Cigarette/Vaping Use: Never Used Second Hand Smoke Exposure: Yes service: No Current occupational status: unemployed Sexual orientation: Straight/Heterosexual Gender identity: Female Cognitive needs: No Hearing needs: No Vision needs: Yes (Glasses) Review of Systems Const All systems reviewed & are unremarkable except as noted in HPI and below Endo Reports no additional complaints Physical Exam Vital Signs: Last Vital Signs BP 102/60 08/26/23 10:27 BMI result Body Mass Index 23.9 Const General: cooperative, healthy appearing and no acute distress Psych Appearance: well kempt Attitude: cooperative Thought process: Normal thought process present Assessment & Plan Assessment & Plan (1) Hot flashes: Code(s): R23.2 - [place] Category: Medical Plan Discussed: Infertility services available, check insurance plan for specific coverage referral can be placed any time if needed. Await for lab work results and discussion for a plan of care and schedule the IUD removal when ready. All of her questions and concerns were addressed to the best of my ability and shared decision making. She is agreeable to the plan of care. This note is constructed using voice recognition software. While every effort has been made to ensure accuracy, driller multiple spindle errors may have been included. Orders: Orders Complete Blood Count no Diff Today R23.2 - [place] Thyroid Stimulating Hormone Today N92.1 - Excessive and frequent menstruation with irregular cycle, R23.2 - [place] HCG Quantitative Today N91.2 - Amenorrhea, unspecified, R23.2 - [place] Coding Level of Care Code Est Pt Level 3 (61282) Diagnoses Hot flashes R23.2
== END 2023-08-26 10:45 | disposition home or self-care (01) ==
LOC: HO.HWS 10:10
PROVIDERS: PCP Internal Medicine; Visit Provider Advanced Practice Midwife
DX: R23.2 Flushing (principal)
CPT/HCPCS: 99213

== ENCOUNTER 2023-08-31 08:54 | Outpatient (AMB) | payer OTHER, SELFPAY ==
[2023-08-31 08:57] VITALS: BP 128/62; PULSE 79; BMI 23.7
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
== END 2023-08-31 09:54 | disposition home or self-care (01) ==
PROVIDERS: PCP Internal Medicine; Visit Provider Nurse Practitioner
DX: K21.9 Gastro-esophageal reflux disease without esophagitis (principal); R13.12 Dysphagia, oropharyngeal phase
CPT/HCPCS: 99203

== ENCOUNTER → 2023-08-31 08:54 | Outpatient (BNVA) | payer OTHER, SELFPAY | PROVIDERS: PCP Internal Medicine; Visit Provider Nurse Practitioner | DX: K21.9 Gastro-esophageal reflux disease without esophagitis (principal); R13.12 Dysphagia, oropharyngeal phase | CPT/HCPCS: 99202 ==

== ENCOUNTER 2023-09-07 08:47 | Outpatient (REF) | payer OTHER, SELFPAY ==
[2023-09-07 09:00] LABS: MANUAL DIFF FLAG NO
[2023-09-07 09:29] LABS: Basophils Absolute Auto 0.1 X10*3/uL (0.0-0.2); Basophils Percent Auto 0.5 % (0-2); Eosinophils Absolute Auto 0.7 X10*3/uL (0.0-0.4); Eosinophils Percent Auto 7.2 % (0-4); Hematocrit 43.6 % (37.0-47.0); Hemoglobin 15.1 g/dl (12.0-16.0); Imm Gran Abs Auto 0.04 X10*3/uL (0.00-0.03); Imm Gran Pct Auto 0.4 % (0.0-0.4); Lymphocytes Absolute Auto 2.3 X10*3/uL (1.2-4.9); Lymphocytes Percent Auto 23.5 % (20-40); Mean Corpuscular HGB Conc 34.6 g/dl (31.0-35.0); Mean Corpuscular Hemoglobin 31.3 pg (27.0-33.0); Mean Corpuscular Volume 90.5 fL (80.0-98.0); Mean Platelet Volume 11.7 fL (9.4-12.3); Monocytes Absolute Auto 0.5 X10*3/uL (0.1-1.2); Monocytes Percent Auto 4.9 % (2-11); Neutrophils Absolute Auto 6.2 x10*3/uL (2.0-8.3); Neutrophils Percent Auto 63.5 % (45-73); Platelet Count 229 X10*3/uL (160-400); Red Blood Count 4.82 X10*6/uL (4.20-5.50); Red Cell Distribution Width 12.3 % (11.0-16.0); White Blood Count 9.8 X10*3/uL (4.8-10.8)
[2023-09-07 09:37] LABS: Appearance Urine Clear; Color Urine Yellow; Glucose Urine UA Negative (Negative); Leukocyte Esterase Urine Negative (Negative); Nitrite Urine Negative (Negative); PH 6.5 (5.0-9.0); Specific Gravity - Urine 1.025 (1.005-1.025); Urine Blood Negative (Negative); Urine Ketones Trace mg/dL (Negative); Urine Protein Negative (Neg-Trace)
[2023-09-07 10:09] LABS: Alanine Aminotransferase 14 U/L (0-31); Albumin Level 4.4 g/dL (3.5-5.0); Alkaline Phosphatase 71 U/L (39-117); Anion Gap 13 (12-20); Aspartate Amino Transferase 19 U/L (5-31); Bilirubin Total 0.4 mg/dL (0.0-1.0); Blood Urea Nitrogen 8 mg/dL (9-16); Calcium 9.3 mg/dL (8.4-10.2); Carbon Dioxide 29 mmol/L (22-29); Chloride 104 mmol/L (96-108); Cholesterol 226 mg/dL (<200); Estimated Glomerular Filt Rate > 60; Glucose Fasting 78 mg/dL (60-99); HDL Cholesterol 45 mg/dL (>40); LDL Cholesterol Calculated 132 mg/dL (<100); Potassium 4.1 mmol/L (3.3-5.1); Sodium 142 mmol/L (135-145); Total Protein 7.6 g/dL (6.5-8.0); Triglycerides 249 mg/dL (<150)
[2023-09-07 10:27] LABS: TSH reflex Free T4 1.79 uIU/mL (0.32-4.0); Vitamin D 25-OH Total 49.4 ng/mL (>30)
== END 2023-09-07 08:48 | disposition home or self-care (01) ==
LOC: HO.LAB 08:47
PROVIDERS: Absent Provider Nurse Practitioner; PCP Internal Medicine; Visit Provider Internal Medicine
DX: E78.00 Pure hypercholesterolemia, unspecified (principal); E55.9 Vitamin D deficiency, unspecified; D64.9 Anemia, unspecified; R30.0 Dysuria
CPT/HCPCS: 36415; 80053; 80061; 81003; 82306; 84443; 85025

== ENCOUNTER → 2023-09-08 08:03 | Outpatient (BNVA) | payer OTHER, SELFPAY | PROVIDERS: PCP Internal Medicine; Visit Provider Advanced Practice Midwife ==

== ENCOUNTER 2023-09-09 08:38 | Outpatient (REF) | payer OTHER, SELFPAY ==
--- NOTE | ~2023-09-09 | US_ITS ---
EXAMINATION: US ABDOMEN COMPLETE CLINICAL INFORMATION: Dysphagia, oropharyngeal phase, GERD. COMPARISON: None available. TECHNIQUE: Real-time imaging of the abdominal viscera. FINDINGS: PANCREAS: Normal. ABDOMINAL AORTA: The proximal, mid, and distal segments are normal in caliber. INFERIOR VENA CAVA: Visualized portions are normal. LIVER: Normal. The liver is normal in size. The liver contour is normal. Parenchymal echogenicity is normal. No focal hepatic lesion. There is no intrahepatic biliary duct dilatation seen. GALLBLADDER: Normal. The gallbladder is physiologically distended without evidence of stones, sludge, polyps, wall thickening or pericholecystic fluid. COMMON BILE DUCT: Normal in caliber measuring 0.3 cm in diameter. RIGHT KIDNEY: Normal. No hydronephrosis. No renal calculi or focal parenchymal lesions. The kidney measures 10.4 cm in maximum dimension. LEFT KIDNEY: Normal. No hydronephrosis. No renal calculi or focal parenchymal lesions. The kidney measures 10.7 cm in maximum dimension. SPLEEN: Normal. The spleen measures 10.9 cm in maximum dimension. FREE FLUID: None. US/US abdomen complete IMPRESSION: No significant abnormality is seen.
[2023-09-10 08:48] LABS: Follicle Stimulating Hormone 8.2 mIU/mL
== END 2023-09-09 08:39 | disposition home or self-care (01) ==
LOC: HO.US 08:38
PROVIDERS: Advanced Practice Midwife; PCP Internal Medicine; Visit Provider Nurse Practitioner
DX: R13.12 Dysphagia, oropharyngeal phase (principal); K21.9 Gastro-esophageal reflux disease without esophagitis; R23.2 Flushing
CPT/HCPCS: 36415; 76700; 83001

== ENCOUNTER 2023-09-30 09:45 | Outpatient (AMB) | payer OTHER, SELFPAY ==
[2023-09-30 09:48] VITALS: BP 110/60; PULSE 80; O2SAT 98; BMI 23.6
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
== END 2023-09-30 10:38 | disposition home or self-care (01) ==
PROVIDERS: PCP Internal Medicine; Visit Provider Internal Medicine
DX: E78.00 Pure hypercholesterolemia, unspecified (principal); J45.20 Mild intermittent asthma, uncomplicated; E55.9 Vitamin D deficiency, unspecified; K21.9 Gastro-esophageal reflux disease without esophagitis; F90.9 Attention-deficit hyperactivity disorder, unspecified type; F43.10 Post-traumatic stress disorder, unspecified
CPT/HCPCS: 99214

== ENCOUNTER 2023-10-04 07:50 | Day surgery (SDC) | payer OTHER, SELFPAY ==
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
[2023-10-04 09:16] VITALS: BMI 23.6
[2023-10-04 09:18] VITALS: BP 112/74; PULSE 70; RESP 16; TEMP 36.6; O2SAT 97
[2023-10-04] MEDS: Lactated Ringers 1,000 ML 100 ML IVCONT (09:31)
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
[2023-10-04 10:00] LABS: UPreg QC Valid YES; Urine Pregnancy NEGATIVE (NEGATIVE)
--- NOTE | 2023-10-04 10:15 | W.PM.OPN ---
Operative Note Operative Note Date of Service: 10/04/23 Narrative: Procedure Description: EGD Indication: dysphagia Anesthesia: MAC FLEXIBLE TRANSORAL UPPER GASTROINTESTINAL ENDOSCOPY UPPER ENDOSCOPY Consent: Indications for the procedure and potential complications of bleeding, perforation, reaction to medications and missed diagnosis were discussed with the patient and informed consent was obtained. Instrument: Olympus GIF H 190 J mid size upper endoscope Monitoring: Vital signs and clinical assessment, continuous EKG monitoring, Pulse oximetry, Carbon Dioxide monitoring and blood pressure monitoring were done throughout the procedure. Procedure: The patient was placed in the left lateral decubitis position and pre-procedure medications were administered and a bite block was placed. The endoscope was inserted into the mouth and advanced under direct vision to the third part of duodenum. A careful inspection was made as the upper endoscope was withdrawn including a retroflexed examination of the proximal stomach; Findings and interventions are described below. Findings: Larynx:normal Esophagus: GE junction at 38 cm, diaphragm hiatus at 38 cm, mild esophagitis at GEJ, bx taken from here and from distal and proximal esophagus --balloon dilation done at LES and UES to 20 mm, no tears seen Stomach: patchy erythema . Biopsies were obtained. Grade 2 flap valve on retroflexed examination of the cardia. Few benign appearing fundic gland polyps seen Duodenum: slightly pale mucosa, bx taken Intervention: Biopsies as noted above, Impression/Findings: gastritis esophagitis PLAN: can try PPI if she agrees GERD precautions
[2023-10-04 10:22] VITALS: BP 107/72; PULSE 96; RESP 20; TEMP 36.1; O2SAT 96
[2023-10-04 10:37] VITALS: BP 112/74; PULSE 82; RESP 18; TEMP 36.4; O2SAT 95
== END 2023-10-04 11:32 | disposition home or self-care (01) ==
PROVIDERS: Nurse Practitioner; PCP Internal Medicine; Visit Provider Internal Medicine Gastroenterology
PROC: 0DJ08ZZ Inspection of Upper Intestinal Tract, Via Natural or Artificial Opening Endoscopic (ICD-10-PCS; CPT 43235; principal; 2023-10-04 10:20)
DX: R13.12 Dysphagia, oropharyngeal phase (principal); K20.80 Other esophagitis without bleeding; K31.7 Polyp of stomach and duodenum; K21.9 Gastro-esophageal reflux disease without esophagitis; K29.70 Gastritis, unspecified, without bleeding; K44.9 Diaphragmatic hernia without obstruction or gangrene; R49.0 Dysphonia; J45.909 Unspecified asthma, uncomplicated; Z87.820 Personal history of traumatic brain injury; G43.909 Migraine, unspecified, not intractable, without status migrainosus; E78.00 Pure hypercholesterolemia, unspecified; E55.9 Vitamin D deficiency, unspecified; F90.9 Attention-deficit hyperactivity disorder, unspecified type; F41.8 Other specified anxiety disorders; F43.10 Post-traumatic stress disorder, unspecified; F07.81 Postconcussional syndrome; Z79.899 Other long term (current) drug therapy; Z91.09 Other allergy status, other than to drugs and biological substances; Z98.890 Other specified postprocedural states; Z56.0 Unemployment, unspecified
CPT/HCPCS: 43249; 43239; 81025; 88305; 88313; 88342; C1726; J2704

== ENCOUNTER → 2023-10-04 07:50 | Outpatient (BNV) | payer OTHER, SELFPAY | PROVIDERS: PCP Internal Medicine; Visit Provider Internal Medicine Gastroenterology | DX: R13.10 Dysphagia, unspecified (principal); K20.90 Esophagitis, unspecified without bleeding; K29.70 Gastritis, unspecified, without bleeding | CPT/HCPCS: 43239; 43249 ==

== ENCOUNTER 2023-10-05 10:37 | Outpatient (AMB) | payer OTHER, SELFPAY ==
[2023-10-05 10:38] VITALS: BP 112/70; PULSE 72; O2SAT 97; BMI 23.6
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
== END 2023-10-05 11:35 | disposition home or self-care (01) ==
PROVIDERS: PCP Internal Medicine; Visit Provider Internal Medicine
DX: S06.0X0S Concussion without loss of consciousness, sequela (principal); V89.2XXS Person injured in unspecified motor-vehicle accident, traffic, sequela; R13.13 Dysphagia, pharyngeal phase; R49.0 Dysphonia; F90.9 Attention-deficit hyperactivity disorder, unspecified type
CPT/HCPCS: 99213

== ENCOUNTER 2024-01-03 10:33 | Outpatient (AMB) | payer OTHER, SELFPAY ==
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
[2024-01-03 10:56] VITALS: BP 102/68; PULSE 71; RESP 16; TEMP 36.6; O2SAT 97; BMI 23.5
== END 2024-01-03 11:39 | disposition home or self-care (01) ==
PROVIDERS: PCP Internal Medicine; Visit Provider Nurse Practitioner Family
DX: M25.562 Pain in left knee (principal)

== ENCOUNTER → 2024-01-03 10:33 | Outpatient (BNVA) | payer OTHER, SELFPAY | PROVIDERS: PCP Internal Medicine; Visit Provider Nurse Practitioner Family | DX: M25.562 Pain in left knee (principal) | CPT/HCPCS: 99202 ==

== ENCOUNTER 2024-01-04 10:20 | Outpatient (REF) | payer OTHER, SELFPAY ==
--- NOTE | ~2024-01-04 | XR_ITS ---
EXAMINATION: XR KNEE LEFT CLINICAL INFORMATION: Pain in left knee M25.562. COMPARISON: None available TECHNIQUE: Two views of the left knee. FINDINGS: No fracture or joint effusion. Alignment is anatomic. Joint spaces are maintained. No abnormal soft tissue calcification. XR/XR knee LT 2V IMPRESSION: Normal left knee. Electronically signed by: Adrien Cheema MD 02/25/2024 11:54 AM EST
== END 2024-01-04 10:21 | disposition home or self-care (01) ==
LOC: HO.XRAY 10:20
PROVIDERS: PCP Internal Medicine; Visit Provider Nurse Practitioner Family
DX: M25.562 Pain in left knee (principal)
CPT/HCPCS: 73560

== ENCOUNTER 2024-01-25 11:51 | Outpatient (AMB) | payer MEDICAID, SELFPAY ==
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
[2024-01-25 12:05] VITALS: BP 114/80; PULSE 83; O2SAT 98; BMI 24.8
== END 2024-01-25 13:03 | disposition home or self-care (01) ==
PROVIDERS: PCP Internal Medicine; Visit Provider Nurse Practitioner Family
DX: F90.9 Attention-deficit hyperactivity disorder, unspecified type (principal); F07.81 Postconcussional syndrome; G44.309 Post-traumatic headache, unspecified, not intractable
CPT/HCPCS: 99214

== ENCOUNTER → 2024-01-25 11:51 | Outpatient (BNVA) | payer MEDICAID, SELFPAY | PROVIDERS: PCP Internal Medicine; Visit Provider Nurse Practitioner Family | DX: F90.9 Attention-deficit hyperactivity disorder, unspecified type (principal); F07.81 Postconcussional syndrome; G43.009 Migraine without aura, not intractable, without status migrainosus | CPT/HCPCS: 99212 ==

== ENCOUNTER 2024-01-31 12:53 | Outpatient (AMB) | payer OTHER, SELFPAY ==
[2024-01-31 12:56] VITALS: BP 108/64; PULSE 85; O2SAT 97; BMI 24.4
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
== END 2024-01-31 13:23 | disposition home or self-care (01) ==
PROVIDERS: PCP Internal Medicine; Visit Provider Internal Medicine
DX: E78.00 Pure hypercholesterolemia, unspecified (principal); J45.20 Mild intermittent asthma, uncomplicated; R06.09 Other forms of dyspnea; E55.9 Vitamin D deficiency, unspecified; K21.9 Gastro-esophageal reflux disease without esophagitis; F90.9 Attention-deficit hyperactivity disorder, unspecified type; F43.10 Post-traumatic stress disorder, unspecified

== ENCOUNTER → 2024-01-31 12:53 | Outpatient (BNVA) | payer OTHER, SELFPAY | PROVIDERS: PCP Internal Medicine; Visit Provider Internal Medicine | DX: E78.00 Pure hypercholesterolemia, unspecified (principal); J45.20 Mild intermittent asthma, uncomplicated; R06.09 Other forms of dyspnea; E55.9 Vitamin D deficiency, unspecified; K21.9 Gastro-esophageal reflux disease without esophagitis; F90.9 Attention-deficit hyperactivity disorder, unspecified type; F43.10 Post-traumatic stress disorder, unspecified | CPT/HCPCS: 96127; 99212 ==

== ENCOUNTER 2024-03-09 08:53 | Outpatient (AMB) | payer OTHER, SELFPAY ==
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
[2024-03-09 08:56] VITALS: BP 110/76; BMI 24.9
== END 2024-03-09 09:26 | disposition home or self-care (01) ==
LOC: HO.HWS 08:53
PROVIDERS: PCP Internal Medicine; Visit Provider Advanced Practice Midwife
DX: Z01.419 Encounter for gynecological examination (general) (routine) without abnormal findings (principal)
CPT/HCPCS: 99395; 99459

== ENCOUNTER → 2024-03-09 08:53 | Outpatient (BNVA) | payer OTHER, SELFPAY | PROVIDERS: PCP Internal Medicine; Visit Provider Advanced Practice Midwife | DX: Z01.419 Encounter for gynecological examination (general) (routine) without abnormal findings (principal) | CPT/HCPCS: 99395; 99459 ==

== ENCOUNTER 2024-03-13 14:22 | Outpatient (AMB) | payer OTHER, SELFPAY ==
[2024-03-13 14:34] VITALS: BP 114/68; PULSE 103; O2SAT 99; BMI 24.9
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
== END 2024-03-13 15:25 | disposition home or self-care (01) ==
PROVIDERS: PCP Internal Medicine; Referring Provider Internal Medicine; Visit Provider Nurse Practitioner Family
DX: J45.20 Mild intermittent asthma, uncomplicated (principal); R06.00 Dyspnea, unspecified; R00.2 Palpitations
CPT/HCPCS: 99204

== ENCOUNTER → 2024-03-13 14:22 | Outpatient (BNVA) | payer OTHER, SELFPAY | PROVIDERS: PCP Internal Medicine; Referring Provider Internal Medicine; Visit Provider Nurse Practitioner Family | DX: J45.20 Mild intermittent asthma, uncomplicated (principal); R06.00 Dyspnea, unspecified; R00.2 Palpitations | CPT/HCPCS: 99202 ==

== ENCOUNTER 2024-04-11 11:59 | Outpatient (REF) | payer OTHER, SELFPAY ==
--- NOTE | ~2024-04-11 | XR_ITS ---
EXAMINATION: XR CHEST CLINICAL INFORMATION: R06.00 - Dyspnea, unspecified COMPARISON: None available. TECHNIQUE: 2 views of the chest were obtained. FINDINGS: No consolidation pleural effusion or pneumothorax. Cardiomediastinal silhouette size is normal. Osseous structures are intact. Mild S-shaped curvature of the thoracolumbar spine. Multilevel thoracic and upper lumbar spondylosis. XR/XR chest 2V IMPRESSION: No acute airspace disease. Mild scoliosis. Electronically signed by: Anil Sam MD 04/11/2024 01:05 PM ESTELITA FERRARO
--- NOTE | 2024-04-11 12:03 | ECG_ITS ---
Test Reason : R00.2 Blood Pressure : */* mmHG Vent. Rate : 88 BPM Atrial Rate : 88 BPM P-R Int : 134 ms QRS Dur : 80 ms QT Int : 358 ms P-R-T Axes : 42 72 38 degrees QTcB Int : 433 ms Normal sinus rhythm Normal ECG No previous ECGs available Referred By: Ofelia Meadows Electronically Signed By: TRISTEN BAHENA MD
--- OUTSIDE RECORDS SUMMARY | 2024-04-11 13:25 | XMS_ITS | Clinical Summary ---
Author Organization [address] [place] [address] Address [address] [place] [address] Phone Care Team Providers Care Wireless Sales Associate Name Role Phone Sea Russell MD Primary Care Provider Allergies No known active allergies Medications albuterol HFA (PROAIR HFA ; PROVENTIL HFA ; VENTOLIN HFA) 90 mcg/actuation inhaler Inhale 2 puffs by mouth every 4 (four) hours if needed. 02/17/2023 Active Adderall XR 30 mg 24 hr capsule Take 1 capsule (30 mg total) by mouth 1 (one) time each day in the morning. Max Daily Amount: 30 mg 02/03/2024 Active Adderall XR 5 mg 24 hr capsule Take 1 capsule (5 mg total) by mouth 1 (one) time each day in the morning. Max Daily Amount: 5 mg 02/03/2024 Active sertraline (ZOLOFT) 50 mg tablet Take 1 tablet (50 mg total) by mouth 1 (one) time each day. 12/14/2023 Active esomeprazole (NexIUM) [address] capsule Take 1 capsule (20 mg total) by mouth 1 (one) time each day. Do not open capsule. 30 each 3 02/16/2024 Active Encounters Date Type Department Care Team Description 02/28/2024 Telephone Gastroenterology [facility] [address] [phone] Rupali Kuhn MA 02/16/2024 1:20 PM EST Consult Gastroenterology [facility] [address] [phone] Maye Fang PA Hiatal hernia with GERD and esophagitis (Primary Dx) 02/01/2024 Telephone Gastroenterology - [place] [address] [facility] [address] [place] [address] Thuan Monique MD Appointment from Last 3 Months Social History Tobacco Use Types Packs/Day Years Used Date Smoking Tobacco: Never Assessed Comments Unknown Sex and Gender Information Value Date Recorded Sex Assigned at Not on file Legal Sex Female 10:22 AM EST Gender Identity Not on file Sexual Orientation Not on file Last Filed Vital Signs Vital Sign Reading Time Taken Comments Blood Pressure 96/54 02/16/2024 1:22 PM EST Pulse 111 02/16/2024 1:22 PM EST Temperature - - Respiratory Rate - - Oxygen Saturation 98% 02/16/2024 1:22 PM EST Inhaled Oxygen Concentration - - Weight 69.9 kg (154 lb 3.2 oz) 02/16/2024 1:22 P M EST Height 174 cm (5' 8.5 ) 02/16/2024 1:22 PM EST Body Mass Index 23.11 02/16/2024 1:22 PM EST Plan of Treatment Health Maintenance Due Date Last Done Comments Hepatitis B Vaccines (1 of 3 - 19+ 3-dose series) 07/02/2003 Cervical Cancer Screening: P ap Smear 2005 DTaP,Tdap,and Td Vaccines (2 - Td or Tdap) 06/22/2013 05/25/2013 Depression Screening 01/27/2022 HIV Screening 01/27/2022 Hepatitis C Screening 01/27/2022 Social Influencers of Health Screening 01/27/2022 COVID-19 Vaccine (4 - 2023-2 5 season) 2023 03/02/2021, 06/19/2020, 05/28/2020 Influenza Vaccine (#1) 2023 , 01/27/2021 HIB Vaccines Aged Out No longer eligi ble based on patient's age to complete this topic HPV Vaccines Aged Out No longer eligi ble based on patient's age to complete this topic Hepatitis A Vaccines Aged Out No long er eligible based on patient's age to complete this topic IPV Vaccines Aged Out No longer eligi ble based on patient's age to complete this topic MMR Vaccines Aged Out No longer eligi ble based on patient's age to complete this topic Meningococcal ACWY Vaccine Aged Out N o longer eligible based on patient's age to complete this topic Meningococcal B Vacine Aged Out No lo nger eligible based on patient's age to complete this topic Pneumococcal Vaccine: Pediatrics (0 to 5 Years) and At-Risk Patients (6 to 64 Years) Aged Out No longer eligible b ased on patient's age to complete this topic RSV Immunization Patients Under 20 months Aged Out No longer eligible b ased on patient's age to complete this topic Varicella Vaccines Aged Out No longer eligible based on patient's age to complete this topic Insurance [facility] PL[facility] Care Teams Wireless Sales Associate Relationship Specialty Start Date End Date Sea Russell MD [address] [place] [address] PCP - General Internal Medicine 02/01/24
== END 2024-04-11 12:00 | disposition home or self-care (01) ==
LOC: HO.XRAY 11:59
PROVIDERS: PCP Internal Medicine; Visit Provider Nurse Practitioner Family
DX: R00.2 Palpitations (principal); R06.00 Dyspnea, unspecified
CPT/HCPCS: 71046; 93005

== ENCOUNTER → 2024-04-11 12:03 | Outpatient (BNV) | payer OTHER, SELFPAY | PROVIDERS: PCP Internal Medicine; Visit Provider Internal Medicine Cardiovascular Disease | DX: R00.2 Palpitations (principal) | CPT/HCPCS: 93010 ==

== ENCOUNTER → 2024-04-11 12:11 | Outpatient (BNV) | payer OTHER, SELFPAY | PROVIDERS: PCP Internal Medicine; Visit Provider Radiology Diagnostic Radiology | DX: R06.00 Dyspnea, unspecified (principal) | CPT/HCPCS: 71046 ==

== ENCOUNTER 2024-04-12 09:59 | Outpatient (AMB) | payer OTHER, SELFPAY ==
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
[2024-04-12 10:10] VITALS: BP 118/70
--- OUTSIDE RECORDS SUMMARY | 2024-04-12 11:43 | XMS_ITS | Clinical Summary ---
Author Organization [address] [place] [address] Address [address] [place] [address] Phone Care Team Providers Care Preparing Box Tender Name Role Phone Sea Russell MD Primary [...] Department Care Team Description 02/28/[address] [facility] [address] [phone] Rupali Kuhn MA 02/16/2024 1:20 PM EST Consult Gastroenterology [facility] [address] [phone] Maye Fang PA Hiatal hernia with GERD and esophagitis (Primary Dx) 02/01/2024 Telephone Gastroenterology - [place] [address] [facility] [address] [place] [address] Thuan Monique MD Appointment from [...] Cervical Cancer Screening: P ap Smear 2005 Depression Screening 01/27/2022 HIV Screening 01/27/2022 Hepatitis C Screening 01/27/2022 Social Influencers of Health Screening 01/27/2022 DTaP,Tdap,and Td Vaccines (2 - Td or Tdap) 05/26/2023 05/25/2013 COVID-19 Vaccine (4 - 2023-2 5 season) [...] patient's age to complete this topic Insurance [facility] PL[facility] Care Teams Preparing Box Tender Relationship Specialty Start Date End Date Sea Russell MD [address] [place] [address] PCP - General Internal Medicine 02/01/24
== END 2024-04-12 10:40 | disposition home or self-care (01) ==
LOC: HO.HWS 09:59
PROVIDERS: PCP Internal Medicine; Visit Provider Advanced Practice Midwife
DX: Z30.432 Encounter for removal of intrauterine contraceptive device (principal)
CPT/HCPCS: 58301

== ENCOUNTER → 2024-04-12 09:59 | Outpatient (BNVA) | payer OTHER, SELFPAY | PROVIDERS: PCP Internal Medicine; Visit Provider Advanced Practice Midwife | DX: Z30.432 Encounter for removal of intrauterine contraceptive device (principal) | CPT/HCPCS: 58301 ==

== ENCOUNTER 2024-04-19 08:51 | Outpatient (REF) | payer OTHER, SELFPAY ==
--- OUTSIDE RECORDS SUMMARY | 2024-04-19 08:54 | XMS_ITS | Clinical Summary ---
Author Organization [address] [place] [address] Address [address] [place] [address] Phone Care Team Providers Care Director Of Physical Therapy Name Role Phone Sea Russell MD Primary [...] Department Care Team Description 02/28/2024 Telephone Gastroenterology [facility] [address] [phone] uRpali Kuhn MA 02/16/2024 1:20 PM EST Consult Gastroenterology [facility] [address] [phone] Maye Fang PA Hiatal hernia with GERD and esophagitis (Primary Dx) 02/01/2024 Telephone Gastroenterology - [place] [address] [facility] [address] [place] [address] Thuan Monique MD Appointment from [...] patient's age to complete this topic Insurance [facility] PLAN Care Teams Director Of Physical Therapy Relationship Specialty Start Date End Date Sea Russell MD [address] [place] [address] PCP - General Internal Medicine 02/01/24
--- NOTE | 2024-04-19 08:55 | PFT_ITS ---
Flows: FEV1: 122 % of predicted at 4.05 L FVC: 127 % of predicted at 5.20 L FEV1/FVC: 78 % Bronchodilator response: Absent Volumes: Total lung capacity: 118 % of predicted at 6.85 L Residual volume: 134 % of predicted at 1.93 L Slow vital capacity: 113 % of predicted at 4.92 L Expiratory reserve volume: 55 % of predicted at 0.78 L Diffusion capacity: Normal Impression: No obstructive or restrictive ventilatory defect. No bronchodilator response. Normal pulmonary function test. MTDD
[2024-04-19 10:32] VITALS: PULSE 76; O2SAT 96
== END 2024-04-19 08:52 | disposition home or self-care (01) ==
LOC: HO.RESP 08:51
PROVIDERS: PCP Internal Medicine; Visit Provider Nurse Practitioner Family
DX: J45.20 Mild intermittent asthma, uncomplicated (principal); R06.00 Dyspnea, unspecified
CPT/HCPCS: 94010; 94640; 94727; 94729

== ENCOUNTER → 2024-04-19 08:55 | Outpatient (BNV) | payer OTHER, SELFPAY | PROVIDERS: PCP Internal Medicine; Visit Provider Internal Medicine Pulmonary Disease | DX: J45.20 Mild intermittent asthma, uncomplicated (principal) | CPT/HCPCS: 94060; 94727; 94729 ==

== ENCOUNTER 2024-05-29 14:39 | Outpatient (AMB) | payer OTHER, SELFPAY ==
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
[2024-05-29 14:45] VITALS: BP 116/64; PULSE 84; O2SAT 97; BMI 24.3
--- OUTSIDE RECORDS SUMMARY | 2024-05-29 16:34 | XMS_ITS | Clinical Summary ---
Author Organization [address] [facility] Address [address] [place] [address] Phone Care Team Providers Care Pig Conveyor Operator Name Role Phone Sea Russell MD Primary [...] open capsule. 30 each 3 02/16/2024 Active Social History Tobacco Use Types Packs/Day Years [...] patient's age to complete this topic Insurance [facility] [employer] Care Teams Pig Conveyor Operator Relationship Specialty Start Date End Date Sea Russell MD [address] [place] [address] PCP - General Internal Medicine 02/01/24
== END 2024-05-29 15:12 | disposition home or self-care (01) ==
LOC: HO.HPS 14:40
PROVIDERS: PCP Internal Medicine; Visit Provider Nurse Practitioner Family
DX: J45.20 Mild intermittent asthma, uncomplicated (principal); R06.00 Dyspnea, unspecified; R00.2 Palpitations
CPT/HCPCS: 99214

== ENCOUNTER → 2024-05-29 14:39 | Outpatient (BNVA) | payer OTHER, SELFPAY | PROVIDERS: PCP Internal Medicine; Visit Provider Nurse Practitioner Family | DX: J45.20 Mild intermittent asthma, uncomplicated (principal); R06.00 Dyspnea, unspecified; R00.2 Palpitations | CPT/HCPCS: 99212 ==

== ENCOUNTER 2024-05-31 12:26 | Outpatient (AMB) | payer OTHER, SELFPAY ==
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
[2024-05-31 12:33] VITALS: BP 128/82; PULSE 107; O2SAT 98; BMI 24.3
--- OUTSIDE RECORDS SUMMARY | 2024-05-31 14:57 | XMS_ITS | Clinical Summary ---
Author Organization 175 [facility] Address [address] [place] [address] Phone Care Team Providers Care Emergency Dispatch Operator Name Role Phone Sea Russell MD Primary Care Provider [phone] Allergies No known active allergies Medications albuterol [...] patient's age to complete this topic Insurance [facility] [place] [address] Care Teams Emergency Dispatch Operator Relationship Specialty Start Date End Date Sea Russell MD [address] [place] [address] PCP - General Internal Medicine 02/01/24
== END 2024-05-31 13:11 | disposition home or self-care (01) ==
LOC: HO.HMCH 12:26
PROVIDERS: PCP Internal Medicine; Visit Provider Internal Medicine
DX: R06.09 Other forms of dyspnea (principal); E78.00 Pure hypercholesterolemia, unspecified; J45.20 Mild intermittent asthma, uncomplicated; E55.9 Vitamin D deficiency, unspecified; K21.9 Gastro-esophageal reflux disease without esophagitis; F90.9 Attention-deficit hyperactivity disorder, unspecified type; F43.10 Post-traumatic stress disorder, unspecified

== ENCOUNTER → 2024-05-31 12:26 | Outpatient (BNVA) | payer OTHER, SELFPAY | PROVIDERS: PCP Internal Medicine; Visit Provider Internal Medicine | DX: R06.09 Other forms of dyspnea (principal); E78.00 Pure hypercholesterolemia, unspecified; J45.20 Mild intermittent asthma, uncomplicated; E55.9 Vitamin D deficiency, unspecified; K21.9 Gastro-esophageal reflux disease without esophagitis; F43.10 Post-traumatic stress disorder, unspecified; F90.9 Attention-deficit hyperactivity disorder, unspecified type | CPT/HCPCS: 96127; 99212 ==

== ENCOUNTER → 2024-06-16 09:56 | Outpatient (REF) | payer OTHER, SELFPAY ==
--- OUTSIDE RECORDS SUMMARY | 2024-06-16 10:41 | XMS_ITS | Clinical Summary ---
Author Organization 175 [facility] Address [address] [place] [address] Phone Care Team Providers Care Principal Examiner Name Role Phone Sea Russell MD Primary [...] season) 2023 03/02/2021, 06/19/2020, 05/28/2020 Influenza Vaccine (Season Ended) 2024 12/09/2021, 01/27/2021 HIB Vaccines Aged Out No longer [...] age to complete this topic Meningococcal B Vaccine Aged Out No l onger eligible based on patient's age to complete [...] patient's age to complete this topic Insurance [facility] Care Teams Principal Examiner Relationship Specialty Start Date End Date Sea Russell MD [address] [place] [address] PCP - General Internal Medicine 02/01/24
== END ==
LOC: HO.CARD 09:56
PROVIDERS: PCP Internal Medicine; Visit Provider Nurse Practitioner Family
DX: R00.2 Palpitations (principal); R00.0 Tachycardia, unspecified
CPT/HCPCS: 93242

== ENCOUNTER → 2024-06-16 10:04 | Outpatient (BNV) | payer OTHER, SELFPAY | PROVIDERS: PCP Internal Medicine; Visit Provider Internal Medicine | DX: I47.10 Supraventricular tachycardia, unspecified (principal) | CPT/HCPCS: 93244 ==

== ENCOUNTER → 2024-06-27 09:09 | Outpatient (REF) | payer OTHER, SELFPAY ==
--- NOTE | 2024-06-27 09:11 | CA_ITS ---
Transthoracic Echocardiogram Patient (Last, First, Middle): Lynn Flanagan L Gender: Female Date of : 1985 Age: 38 Procedure Date: 06/27/2024 Procedure Type: Transthoracic Echocardiogram Location: OP Height: 172.72 cm Weight: 68.04 kg BSA: 1.81 m2 Heart Rate: bpm BP: 110 / 68 mmHg Manager Of Project Management: TO/RC Referring MD: Sea Russell MD Symptoms: R06.09 - Other forms of dyspnea Study Quality: Adequate ECG Rhythm: Sinus Conclusions: - The left ventricular systolic function is normal. The calculated ejection fraction is 66% by biplane method. - No obvious valvular pathology seen on this study. Findings Left Ventricle Normal left ventricular cavity size. There is normal left ventricular wall thickness. The left ventricular systolic function is normal. The calculated ejection fraction is 66% by biplane method. There is no evidence of regional wall motion abnormalities. Diastolic function is normal for age. Right Ventricle Normal right ventricular cavity size. There is normal right ventricular systolic function. Atria Both atria are normal in size. Aortic Valve There is a normal trileaflet aortic valve. There is no aortic valve stenosis. There is no aortic valve regurgitation. Mitral Valve The mitral valve appears normal. There is no mitral valve regurgitation. There is no mitral valve stenosis. Pulmonic Valve The pulmonic valve is likely normal. Tricuspid Valve Normal tricuspid valve structure. There is no tricuspid valve regurgitation. Tricuspid regurgitation envelope is inadequate for calculation of right ventricular systolic pressure. Great Vessels The asc aorta is normal in size. Venous The inferior vena cava is normal in size and collapses greater than 50% with inspiration. Pericardium/Pleural There is no evidence of pericardial effusion. Prior Study Comparison No prior study available for comparison. Recommendations, Care & Conclusions No obvious valvular pathology seen on this study. Measurements 2D Linear Measurements IVSd: 0.70 0.6-0.9/0.6-1.0 cm LVIDd: 4.75 3.9-5.3/4.2-5.9 cm LVIDd Index: 2.62 2.4-3.2/2.2-3.1 cm/m2 LVIDs: 3.08 2.0-3.6 cm LVPWd: 0.69 0.7-1.1 cm LA Diam: 2.80 2.7-3.8/3.0-4.0 cm LAIDs Index: 1.55 1.5-2.3 cm/m2 LV Mass: 129.04 67-162/88-224 g LV Mass Index: 71.29 43-95/49-115 g/m2 LVOT Diam: 2.20 3.0+(-)1.3 cm 2D Systolic Function EF 4C: 65.80 >55% EF 2C: 66.50 >55% EF BiP: 66.40 >55% Mitral Valve MV Pk E: 0.60 MV PK A: 0.49 MV Decel Time: 141.00 E/A: 1.20 E'Lateral: 9.68 E'Medial: 10.20 E/E' Med: 5.80 E/E' Lat: 6.20 PHT: 41.00 MVA PHT: 5.37 Decel Morris: 4.22 Aortic Valve AoV Pk Seamus: 1.16 AoV Mn Seamus: 0.80 AoV VTI: 0.20 AoV Pk Grad: 5.00 Aov Mn Grad: 3.00 HUGH Cont.VTI: 3.93 LVOT LVOT Pk Esamus: 1.16 LVOT Mn Seamus: 0.80 LVOT VTI: 0.21 LVOT Pk Grad: 5.00 LVOT Mn Grad: 3.00 LVOT Diam: 2.20 LVOT Area: 3.80 Diastolic Function MV Pk E: 0.60 MV Pk A: 0.49 E/A: 1.20 E'Medial: 10.20 E/E' Med: 5.80 E' Laterial: 9.68 E/E' Lat: 6.20 Right Ventricle TAPSE (mm): 19.50 TVS' Seamus: 9.90 Tricuspid Valve RA Press: 3.00 Great Vessels Aorta Sinus of Valsalva: 3.08 2.0-3.5 cm Ao Asc: 2.80 2.1-3.4 cm Updated in Other Vendor System with Status of Final Jace Lee MD electronically signed on 06/28/2024 12:28:38 PM with status of Final
--- OUTSIDE RECORDS SUMMARY | 2024-06-27 09:55 | XMS_ITS | Clinical Summary ---
Author Organization 175 [facility] Address [address] [place] [address] Phone Care Team Providers Care Afloat Cryptologic Manager Name Role Phone Sea Russell MD Primary [...] patient's age to complete this topic Insurance [facility] PL[facility] Care Teams Afloat Cryptologic Manager Relationship Specialty Start Date End Date Sea Russell MD [address] [place] [address] PCP - General Internal Medicine 02/01/24
== END ==
LOC: HO.CARD 09:09
PROVIDERS: PCP Internal Medicine; Visit Provider Internal Medicine
DX: R06.09 Other forms of dyspnea (principal); R00.2 Palpitations
CPT/HCPCS: 93306

== ENCOUNTER → 2024-06-27 09:11 | Outpatient (BNV) | payer OTHER, SELFPAY | PROVIDERS: PCP Internal Medicine; Visit Provider Internal Medicine | DX: R00.2 Palpitations (principal) | CPT/HCPCS: 93306 ==

== ENCOUNTER → 2024-07-28 10:59 | Outpatient (BNVA) | payer OTHER, SELFPAY | PROVIDERS: PCP Internal Medicine; Visit Provider Nurse Practitioner Family ==

== ENCOUNTER 2024-08-01 15:25 | Outpatient (AMB) | payer MEDICAID, SELFPAY ==
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
[2024-08-01 15:36] VITALS: BP 110/74; PULSE 81; O2SAT 97; BMI 24.1
--- OUTSIDE RECORDS SUMMARY | 2024-08-01 16:52 | XMS_ITS | Clinical Summary ---
Author Organization 175 [facility] Address [address] [place] [address] Phone Care Team Providers Care Counter Pocket Trimmer Name Role Phone Sea Russell MD Primary [...] Health Maintenance Due Date Last Done Comments Breast Cancer Screening 1985 Hepatitis B Vaccines (1 of 3 - [...] patient's age to complete this topic Insurance [facility] PL[facility] Care Teams Counter Pocket Trimmer Relationship Specialty Start Date End Date Sea Russell MD [address] [place] [address] PCP - General Internal Medicine 02/01/24
== END 2024-08-01 16:32 | disposition home or self-care (01) ==
LOC: HO.HSMS 15:25
PROVIDERS: PCP Internal Medicine; Visit Provider Nurse Practitioner Family
DX: G43.009 Migraine without aura, not intractable, without status migrainosus (principal); F90.9 Attention-deficit hyperactivity disorder, unspecified type; M25.562 Pain in left knee; G89.29 Other chronic pain; F07.81 Postconcussional syndrome; M35.7 Hypermobility syndrome
CPT/HCPCS: 99214

== ENCOUNTER → 2024-08-01 15:25 | Outpatient (BNVA) | payer OTHER, SELFPAY | PROVIDERS: PCP Internal Medicine; Visit Provider Nurse Practitioner Family | DX: F07.81 Postconcussional syndrome (principal); G43.009 Migraine without aura, not intractable, without status migrainosus; F90.9 Attention-deficit hyperactivity disorder, unspecified type; M25.562 Pain in left knee; M35.7 Hypermobility syndrome; G89.29 Other chronic pain | CPT/HCPCS: 99212 ==

== ENCOUNTER 2024-09-14 09:43 | Outpatient (AMB) | payer OTHER, SELFPAY ==
[2024-09-14 09:47] VITALS: BP 122/78; PULSE 86; O2SAT 97; BMI 23.9
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
--- OUTSIDE RECORDS SUMMARY | 2024-09-14 10:05 | XMS_ITS | Clinical Summary ---
Author Organization 175 [facility] Address [address] [place] [address] Phone Care Team Providers Care Bottom Stop Attacher Name Role Phone Sea Russell MD Primary [...] 2023 03/02/2021, 06/19/2020, 05/28/2020 Influenza Vaccine (#1) 2024 , 01/27/2021 HIB Vaccines Aged Out No [...] 5 Years) and At-Risk Patients (6 to 49 Years) Aged Out No longer eligible b ased on patient's age to complete this topic RSV Immunization Patients Under 20 months Aged Out No longer eligible b ased on patient's age to complete this topic Varicella Vaccines Aged Out No longer eligible based on patient's age to complete this topic Insurance [facility] [employer] Care Teams Bottom Stop Attacher Relationship Specialty Start Date End Date Sea uRssell MD [address] [place] [address] PCP - General Internal Medicine 02/01/24
== END 2024-09-14 10:24 | disposition home or self-care (01) ==
LOC: HO.HMCH 09:44
PROVIDERS: PCP Internal Medicine; Visit Provider Internal Medicine
DX: D17.1 Benign lipomatous neoplasm of skin and subcutaneous tissue of trunk (principal)

== ENCOUNTER → 2024-09-14 09:43 | Outpatient (BNVA) | payer OTHER, SELFPAY | PROVIDERS: PCP Internal Medicine; Visit Provider Internal Medicine | DX: D17.1 Benign lipomatous neoplasm of skin and subcutaneous tissue of trunk (principal) | CPT/HCPCS: 96127; 99212 ==

== ENCOUNTER 2024-10-04 09:02 | Outpatient (AMB) | payer OTHER, SELFPAY ==
[2024-10-04 09:04] VITALS: BP 116/75; PULSE 70; BMI 23.8
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
--- OUTSIDE RECORDS SUMMARY | 2024-10-04 09:18 | XMS_ITS | Clinical Summary ---
Author Organization [address] [facility] Address [address] [place] [address] Phone Care Team Providers Care Caddy/Caddie Supervisor Name Role Phone Sea Russell MD Primary Care Provider [phone] Allergies No known active allergies Medications albuterol [...] Cervical Cancer Screening: P ap Smear 2005 HIV Screening 01/27/2022 Hepatitis C Screening 01/27/2022 Social Influencers of Health Screening 01/27/2022 DTaP,Tdap,and Td Vaccines (2 - Td or Tdap) 05/26/2023 05/25/2013 COVID-19 Vaccine (4 - 2023-2 5 season) 2023 03/02/2021, 06/19/2020, 05/28/2020 Depression Screening 03/01/2024 Influenza Vaccine (#1) 2024 , 01/27/2021 HIB [...] patient's age to complete this topic Insurance [facility] [place] [address] Care Teams Caddy/Caddie Supervisor Relationship Specialty Start Date End Date Sea Russell MD PCP - General Internal Medicine 02/01/24
--- OUTSIDE RECORDS SUMMARY | 2024-10-04 09:18 | XMS_ITS | Clinical Summary ---
Author Organization [facility] Address [address] [place] [id number] Phone Care Team Providers Care Acrobatic Dancer Name Role Phone Sea Russell MD Primary Care Provider [phone] Allergies No known active allergies Medications No known medications Active Problems No known active problems Social History Tobacco Use Types Packs/Day Years Used Date Smoking Tobacco: Never Smokeless Tobacco: Never Alcohol Use Standard Drinks/Week Comments Not Currently 0 (1 standard drink = 0.6 oz pur e alcohol) Education Answer Date Recorded Are you interested in more education? Not on carla e 06/26/2022 Are you concerned about learning? Not on file 06/26/2022 No 06/26/2022 No 06/26/2022 Digital Access Answer Date Recorded No 07/24/2022 No 07/24/2022 No 07/24/2022 Reliable internet access at home? Not on file 07/24/2022 Device with a working camera? Not on file Comments Unknown Sex and Gender Information Value Date Recorded Sex Assigned at Female 04/01/2021 12:26 PM EST Legal Sex Female 9:15 PM EDT Gender Identity Female 04/01/2021 12:26 PM EST Sexual Orientation Not on file Last Filed Vital Signs Vital Sign Reading Time Taken Comments Blood Pressure 111/67 04/01/2021 12:27 PM EST Pulse 80 04/01/2021 12:27 PM EST Temperature 36.3 C (97.3 F) 04/01/2021 12:25 PM EST Respiratory Rate 16 04/01/2021 12:25 PM EST Oxygen Saturation 98% 04/01/2021 12:25 PM EST Inhaled Oxygen Concentration - - Weight 63.5 kg (140 lb) 10/15/2018 2:28 PM EDT Height 172.7 cm (5' 8 ) 10/15/2018 2:28 PM EDT Body Mass Index 21.29 10/15/2018 2:28 PM EDT Plan of Treatment Health Maintenance Due Date Last Done Comments DEPRESSION SCREENING 1996 HEPATITIS C SCREENING 2002 HIV ONE-TIME SCREENING (18-6 5 YEARS) 2002 PAP SMEAR 2005 Adult Td,Tdap Booster 05/26/2023 05/25/2013 COVID-19 VACCINE (2 2023-2 5 season) 2023 05/28/2020 MAMMOGRAM 2024 SMOKING STATUS SCREENING (On ce After 26 Yrs) Completed 10/15/2018 HEPATITIS A VACCINES Aged Out No long er eligible based on patient's age to complete this topic HIB VACCINES Aged Out No longer eligi ble based on patient's age to complete this topic MENINGOCOCCAL VACCINES (ACWY) Aged Out No longer eligible based on patient's age to complete this topic MENINGOCOCCAL VACCINES (B) Aged Out N o longer eligible based on patient's age to complete this topic PNEUMOCOCCAL VACCINES (0-49 years) Aged Out No longer eligible based on patient's age to complete this topic Medical Devices Not on file [place] [address] [place] [address] ACO ACO ACO ACO [facility] ACO Care Teams Acrobatic Dancer Relationship Specialty Start Date End Date Sea Russell MD [address] [place] [address] [place] [address] PCP - General Internal Medicine 03/25/21 Additional Source Comments The information contained in this document represents components of the legal health record. It is not the complete legal health record.[facility]
[2024-10-04 09:20] VITALS: BP 120/71; PULSE 76
[2024-10-04 09:23] VITALS: BP 111/70; PULSE 91
== END 2024-10-04 09:56 | disposition home or self-care (01) ==
LOC: HO.HCS 09:03
PROVIDERS: PCP Internal Medicine; Visit Provider Internal Medicine Cardiovascular Disease
DX: G90.A Postural orthostatic tachycardia syndrome [POTS] (principal)
CPT/HCPCS: 93010; 99214

== ENCOUNTER → 2024-10-04 09:02 | Outpatient (BNVA) | payer OTHER, SELFPAY | PROVIDERS: PCP Internal Medicine; Visit Provider Internal Medicine Cardiovascular Disease | DX: G90.A Postural orthostatic tachycardia syndrome [POTS] (principal); I49.3 Ventricular premature depolarization | CPT/HCPCS: 93005; 99212 ==

== ENCOUNTER 2024-12-06 11:36 | Outpatient (AMB) | payer OTHER, SELFPAY ==
[2024-12-06 11:39] VITALS: BMI 24.0
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
== END 2024-12-06 12:02 | disposition home or self-care (01) ==
LOC: HO.HGS 11:37
PROVIDERS: PCP Internal Medicine; Visit Provider Surgery
DX: R22.2 Localized swelling, mass and lump, trunk (principal)
CPT/HCPCS: 99203

== ENCOUNTER → 2024-12-06 11:36 | Outpatient (BNVA) | payer OTHER, SELFPAY | PROVIDERS: PCP Internal Medicine; Visit Provider Surgery | DX: R22.2 Localized swelling, mass and lump, trunk (principal) | CPT/HCPCS: 99202 ==

== ENCOUNTER 2025-01-31 15:27 | Outpatient (AMB) | payer OTHER, SELFPAY ==
[2025-01-31 15:29] VITALS: BP 106/70; PULSE 110; RESP 18; TEMP 36.9; O2SAT 99; BMI 23.5
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
--- OUTSIDE RECORDS SUMMARY | 2025-01-31 18:28 | XMS_ITS | Clinical Summary ---
Author Organization [facility] Address [address] [address] Phone Care Team Providers Care Inspector Mechanical Name Role Phone Sea Russell MD Primary Care Provider [phone] Allergies No known active allergies Medications No known medications Active Problems No known active problems Encounters Date Type Department Care Team Description 11/05/2024 9:38 PM EDT - 11/05/2024 9:39 PM EDT Emergency [facility] [address] [place] [address] Discharge Disposition: Left Without Being Seen from Last 3 Months Social History Tobacco [...] Answer Date Recorded No 07/24/2022 No 07/24/2022 Reliable internet access at home? Not on file 07/24/2022 Device with a working camera? Not on file Intimate Partner Violence Answer Date R ecorded Are you denied basic needs s uch as food, clothing, or medical care? No 11/05/2024 In the past 12 months have y ou been in a relationship with a person who hurts, threatens, or tries to control you? No 11/05/2024 Are you denied basic needs s uch as food, clothing, or medical care? No 11/05/2024 In the past 12 months have y ou been in a relationship with a person who hurts, threatens, or tries to control you? No 11/05/2024 Comments Unknown Sex and Gender Information Value Date Recorded Sex Assigned at Female 04/01/2021 12:26 PM EST Legal Sex Female 9:15 PM EDT Gender Identity Female 04/01/2021 12:26 PM EST Sexual Orientation Not on file Last Filed Vital Signs Vital Sign Reading Time Taken Comments Blood Pressure 148/90 11/05/2024 6:40 PM EDT Pulse 88 11/05/2024 6:40 PM EDT Temperature 36 C (96.8 F) 11/05/2024 6:40 PM EDT Respiratory Rate 16 11/05/2024 6:40 PM EDT Oxygen Saturation 97% 11/05/2024 6:40 PM EDT Inhaled Oxygen Concentration - - Weight 63.5 kg (140 lb) 11/05/2024 6:40 PM EDT Height 172.7 cm (5' 8 ) 11/05/2024 6:40 PM EDT Body Mass Index 21.29 11/05/2024 6:40 PM EDT Plan of Treatment Health Maintenance Due Date Last Done Comments DEPRESSION SCREENING 1996 HEPATITIS C SCREENING 2002 HIV ONE-TIME SCREENING (18-6 5 YEARS) 2002 PAP SMEAR 2005 Adult Td,Tdap Booster 05/26/2023 05/25/2013 MAMMOGRAM 2024 INFLUENZA VACCINE (#1) 2024 COVID-19 VACCINE (2 - 2024-2 6 season) 2024 05/28/2020 SMOKING STATUS SCREENING (On ce After 26 Yrs) Completed 11/05/2024 HEPATITIS A VACCINES Aged Out No long [...] this topic Medical Devices Not on file Procedures Procedure Name Priority Date/Time Associated Diagnosis Comments TROPONIN STAT 11/05/2024 8:26 PM EDT TROPONIN STAT 11/05/2024 7:07 PM EDT BASIC METABOLIC PANEL (BMP) STAT 11/05/2024 7:07 PM EDT CBC AND DIFFERENTIAL STAT 11/05/2024 7:07 PM EDT from Last 3 Months Results * Troponin (11/05/2024 8:26 PM EDT) Only the most recent of2 resultswithin the time period is included. Pathologist [facility] Troponin-T, HS Gen5 <6 0 - 9 ng/L [facility] Blood 11/05/2024 8:26 PM EDT 11/05/2024 8:31 PM EDT us Alecia Fischer PA-C LAB BLOOD BKR ORDERABLES Fi nal Result [facility] [address] [place] [address] * (ABNORMAL) CBC and differential (11/05/2024 7:07 PM EDT) [facility] WBC 10.68 4.00 - 11.00 K/uL [facility] RBC 4.27 4.00 - 5.20 M/uL [facility] HGB 13.5 12.0 - 16.0 g/dL [facility] HCT 38.7 36.0 - 46.0 % [facility] PLT 229 150 - 450 K/uL [facility] MCV 90.6 80.0 - 100.0 fL [facility] MCH 31.6(H) 27.0 - 31.0 pg [facility] MCHC 34.9 32.0 - 36.0 g/dL [facility] RDW 12.0 11.5 - 14.5 % [facility] MPV 12.0 8.4 - 12.0 fL [facility] NRBC 0.00 0.00 /100 WBCs [facility] ABSOLUTE NRBC 0.00 0.00 K/uL [facility] DIFF METHOD Auto [facility] NEUTS 63.0 48.0 - 76.0 % [facility] LYMPHS 31.4 18.0 - 41.0 % [facility] MONOS 3.8(L) 4.0 - 11.0 % [facility] EOS 1.0 0.0 - 5.0 % [facility] BASOS 0.4 0.0 - 1.5 % [facility] Granulocytes, immature (%) 0.4 0.0 - 0.9 % [facility] ABSOLUTE NEUTS 6.73 1.92 - 7.60 K/uL [facility] ABSOLUTE LYMPHS 3.35 0.72 - 4.10 K/uL [facility] ABSOLUTE MONOS 0.41 0.16 - 1.10 K/uL [facility] ABSOLUTE EOS 0.11 0.00 - 0.50 K/uL [facility] ABSOLUTE BASOS 0.04 0.00 - 0.15 K/uL [facility] Granulocytes, immature 0.04 0.00 - 0.09 K/uL [facility] Blood 11/05/2024 7:07 PM EDT 11/05/2024 7:18 PM EDT us Alecia Fischer PA-C LAB BLOOD BKR ORDERABLES Fi nal Result Performing Organization Address City/State/[facility] Co de Phone Number [address] [address] * (ABNORMAL) Basic metabolic panel (11/05/2024 7:07 PM EDT) SODIUM 139 133 - 146 mmol/L [facility] CHLORIDE 103 96 - 108 mmol/L [facility] POTASSIUM 3.5 3.3 - 5.1 mmol/L [facility] CO2 24 21 - 35 mmol/L [facility] BUN 8 6 - 19 mg/dL [facility] CREATININE 0.50 0.5 - 1.5 mg/dL [facility] GLUCOSE 119(H) 70 - 99 mg/dL [facility] CALCIUM 9.2 8.4 - 10.3 mg/dL [facility] EGFR >120 >59 mL/min/1.7 3m2 [facility] Comment:Estimated glomerular filtration rate calculated using the CKD-EPI refit equation. ANION GAP 16 10 - 20 mmol/L [facility] Blood 11/05/2024 7:07 PM EDT 11/05/2024 7:18 PM EDT us Alecia Fischer PA-C LAB BLOOD BKR ORDERABLES Fi nal Result [facility] [address] [place] [address] from Last 3 Months Insurance [employer] [place] [address] [address] [place] [address] [place] [address] [place] [address] [place] [address] [place] [address] [place] [address] [employer] [place] [id number] Care Teams Inspector Mechanical Relationship Specialty Start Date End Date Sea Russell MD [address] [place] [address] [place] [address] PCP - General Internal Medicine 03/25/21 Additional Source Comments The information contained in this document represents components of the legal health record. It is not the complete legal health record.[facility]
== END 2025-01-31 15:57 | disposition home or self-care (01) ==
PROVIDERS: PCP Internal Medicine; Visit Provider Physician Assistant
DX: R00.0 Tachycardia, unspecified (principal); F41.9 Anxiety disorder, unspecified; R00.2 Palpitations

== ENCOUNTER → 2025-01-31 15:27 | Outpatient (BNVA) | payer OTHER, SELFPAY | PROVIDERS: PCP Internal Medicine; Visit Provider Physician Assistant | DX: R00.0 Tachycardia, unspecified (principal); R00.2 Palpitations; F41.9 Anxiety disorder, unspecified | CPT/HCPCS: 99212 ==

== ENCOUNTER 2025-01-31 16:04 | Emergency (ER) | payer OTHER, SELFPAY ==
--- NOTE | ~2025-01-31 | XR_ITS ---
CLINICAL HISTORY: mass on chest 1 view chest x-ray Comparison: CR/SR - XR CHEST 2 VIEWS - 04/11/24 12:17 EST Findings: No consolidation, pleural effusion or pneumothorax. Normal size heart. No acute fracture. IMPRESSION: No acute cardiopulmonary process. This document has been electronically signed by: Keila Chen DO on 01/31/2025 18:04:31
--- NOTE | ~2025-01-31 | CT_ITS ---
CLINICAL HISTORY: dysphonia. CT soft tissue neck without contrast Comparison: None provided Findings: The visualized intracranial contents are unremarkable. No prevertebral fluid. Epiglottis is within normal limits. Pharyngeal mucosal space and parapharyngeal fat are normal. Salivary glands are unremarkable. No sialoliths. Thyroid gland is unremarkable. No lymphadenopathy seen. No consolidation at the lung apices. No acute fractures. IMPRESSION: No acute findings. This document has been electronically signed by: Jose E Olivera MD on 01/31/2025 19:53:13
--- NOTE | ~2025-01-31 | CT_ITS ---
CLINICAL HISTORY: dysphonia, thoracic mass palpable. CT chest without contrast Comparison: None provided Findings: The heart size is normal. The visualized thyroid and mediastinum are unremarkable. The lungs are clear. Trachea and bronchial tree are normal, without intraluminal masses. The upper abdomen is unremarkable. The bones are intact. IMPRESSION: 1. Unremarkable chest CT. This document has been electronically signed by: Jose E Olivera MD on 01/31/2025 19:50:35
--- NOTE | 2025-01-31 16:07 | ECG_ITS ---
Test Reason : CHEST PAIN Blood Pressure : */* mmHG Vent. Rate : 70 BPM Atrial Rate : 70 BPM P-R Int : 128 ms QRS Dur : 84 ms QT Int : 384 ms P-R-T Axes : 20 54 40 degrees QTcB Int : 414 ms Sinus rhythm with occasional Premature ventricular complexes Otherwise normal ECG When compared with ECG of 11-Apr-2024 12:00, Premature ventricular complexes are now Present Referred By: Darell Kiser Electronically Signed By: YAHAIRA BOWERS
[2025-01-31 17:04] VITALS: BP 139/83; PULSE 89; RESP 20; TEMP 36.2; O2SAT 98; BMI 23.1
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
[2025-01-31 18:14] LABS: MANUAL DIFF FLAG NO
[2025-01-31 18:16] LABS: Hematocrit 40.9 % (37.0-47.0); Hemoglobin 14.1 g/dl (12.0-16.0); Imm Gran Abs Auto 0.03 X10*3/uL (0.00-0.03); Imm Gran Pct Auto 0.2 % (0.0-0.4); Lymphocytes Absolute Auto 2.9 X10*3/uL (1.2-4.9); Mean Corpuscular HGB Conc 34.5 g/dl (31.0-35.0); Mean Corpuscular Hemoglobin 31.0 pg (27.0-33.0); Mean Corpuscular Volume 89.9 fL (80.0-98.0); NRBC Abs Auto 0.000 X10*3/uL (0.0-0.012); NRBC Pct Auto 0.0 /100WBC (0.0-0.2); Platelet Count 220 X10*3/uL (160-400); Red Blood Count 4.55 X10*6/uL (4.20-5.50); White Blood Count 12.0 X10*3/uL (4.8-10.8)
[2025-01-31 18:23] LABS: IDNOW Serial# 55D5AD1C; Strep A Nucleic Acid Negative (Negative)
[2025-01-31 18:28] LABS: INTERNATIONAL NORM RATIO 1.1 (0.9-1.1); Prothrombin Time 13.5 SEC (11.2-13.5)
[2025-01-31 18:31] LABS: Partial Thromboplastin Time 30.2 SEC (26.7-34.1)
[2025-01-31 18:43] LABS: Alanine Aminotransferase 18 U/L (0-31); Albumin Level 4.8 g/dL (3.5-5.0); Alkaline Phosphatase 62 U/L (39-117); Anion Gap 11 (12-20); Aspartate Amino Transferase 21 U/L (5-31); Blood Urea Nitrogen 8 mg/dL (9-16); Calcium 9.4 mg/dL (8.4-10.2); Carbon Dioxide 27 mmol/L (22-29); Chloride 106 mmol/L (96-108); Creatinine Clr Calc Pharmacy 130.1; Estimated Glomerular Filt Rate > 60; Potassium 3.9 mmol/L (3.3-5.1); Sodium 140 mmol/L (135-145); Total Protein 7.5 g/dL (6.5-8.0)
[2025-01-31 18:47] LABS: Troponin-I High Sensitivity 10.2 ng/L (<3.5-17.0)
[2025-01-31 19:00] LABS: Resp Syncy Virus RNA Qual PCR NEGATIVE (Negative); SARS COV2 PCR INHOUSE NEGATIVE (Negative)
[2025-01-31 19:16] LABS: NT Pro B Type Natriuretic Pept 33.8 pg/mL (<300)
[2025-01-31 20:07] VITALS: BP 127/90; PULSE 80; RESP 16; O2SAT 98
[2025-01-31 21:47] VITALS: BP 127/90; PULSE 80; RESP 16; TEMP -17.7; TEMP 0; O2SAT 98
== END 2025-01-31 21:48 | disposition home or self-care (01) ==
PROVIDERS: Physician Assistant; Emergency Provider Emergency Medicine; PCP Internal Medicine
DX: R20.2 Paresthesia of skin (principal); R06.00 Dyspnea, unspecified; D17.1 Benign lipomatous neoplasm of skin and subcutaneous tissue of trunk; K21.9 Gastro-esophageal reflux disease without esophagitis; Z79.899 Other long term (current) drug therapy
CPT/HCPCS: 70490; 71045; 71250; 80053; 83880; 84484; 84702; 85025; 85610; 85730; 87637; 87651; 93005; 99284

== ENCOUNTER → 2025-01-31 16:07 | Outpatient (BNV) | payer OTHER, SELFPAY | PROVIDERS: Emergency Provider Emergency Medicine; PCP Internal Medicine; Visit Provider Internal Medicine | DX: I49.3 Ventricular premature depolarization (principal) | CPT/HCPCS: 93010 ==

== ENCOUNTER → 2025-01-31 17:39 | Outpatient (BNV) | payer OTHER, SELFPAY | PROVIDERS: PCP Internal Medicine; Visit Provider Radiology Diagnostic Radiology | DX: R22.2 Localized swelling, mass and lump, trunk (principal); R49.0 Dysphonia | CPT/HCPCS: 70490; 71045; 71250 ==

== ENCOUNTER 2025-02-02 14:23 | Outpatient (AMB) | payer OTHER, SELFPAY ==
[2025-02-02 14:45] VITALS: BP 120/68; PULSE 88; RESP 18; O2SAT 98; BMI 22.8
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
--- OUTSIDE RECORDS SUMMARY | 2025-02-02 18:30 | XMS_ITS | Clinical Summary ---
Author Organization [address] [facility] Address [address] [place] [address] Phone Care Team Providers Care Casting Room Helper Name Role Phone Sea Russell MD Primary Care Provider [phone] Allergies No known active allergies Medications albuterol [...] 02/16/2024 1:22 PM EST Plan of Treatment Upcoming Encounters Date Type Department Care Team (Late st Contact Info) Description 03/06/2025 1:45 PM EST Appointment [facility] Xray [address] [place] [address] Health Maintenance Due Date Last Done Comments Breast Cancer Screening 1984 Hepatitis B Vaccines (1 of 3 - 19+ 3-dose series) 07/02/2003 Cervical Cancer Screening: P ap Smear 2005 HPV Vaccines (1 - 3-dose SCD M series) 07/02/2011 HIV Screening 01/27/2022 Hepatitis C Screening 01/27/2022 Social Influencers of Health Screening 01/27/2022 DTaP,Tdap,and Td Vaccines (2 - Td or Tdap) 05/26/2023 05/25/2013 Depression Screening 03/01/2024 COVID-19 Vaccine (4 - 2024-2 6 season) 2024 03/02/2021, 06/19/2020, 05/28/2020 Influenza Vaccine (#1) 2024 2, 01/27/2021 RSV Immunization Adult Patients (1 - 1-dose 75+ series) 07/02/2059 HIB Vaccines Aged Out No longer eligi [...] patient's age to complete this topic Insurance [facility] [place] [address] Care Teams Casting Room Helper Relationship Specialty Start Date End Date Sea Russell MD PCP - General Internal Medicine 02/01/24
--- OUTSIDE RECORDS SUMMARY | 2025-02-02 18:30 | XMS_ITS | Clinical Summary ---
Author Organization [facility] Address [address] [address] Phone Care Team Providers Care Assistant Toddler Teacher Name Role Phone Sea Russell MD Primary Care Provider [phone] [phone] Allergies No known active allergies Medications No known medications Active Problems No known active problems Encounters Date Type Department Care Team Description 11/05/2024 9:38 PM EDT - 11/05/2024 9:39 PM EDT Emergency [facility] Emergency [address] [place] [address] Discharge Disposition: Left Without Being Seen from [...] resultswithin the time period is included. Pathologist [facility] Troponin-T, HS Gen5 <6 0 - 9 ng/L [facility] Blood 11/05/2024 8:26 PM EDT 11/05/2024 8:31 PM EDT us Alecia Fischer PA-C LAB BLOOD BKR ORDERABLES Fi nal Result [facility] [address] [place] [address] * (ABNORMAL) CBC and differential (11/05/2024 7:07 PM EDT) [facility] WBC 10.68 4.00 - 11.00 K/uL [facility] RBC 4.27 4.00 - 5.20 M/uL [facility] HGB 13.5 12.0 - 16.0 g/dL [facility] HCT 38.7 36.0 - 46.0 % [facility] PLT 229 150 - 450 K/uL [facility] MCV 90.6 80.0 - 100.0 fL [facility] MCH 31.6(H) 27.0 - 31.0 pg [facility] MCHC 34.9 32.0 - 36.0 g/dL [facility] RDW 12.0 11.5 - 14.5 % [facility] MPV 12.0 8.4 - 12.0 fL [facility] NRBC 0.00 0.00 /100 WBCs [facility] ABSOLUTE NRBC 0.00 0.00 K/uL [facility] DIFF METHOD Auto [facility] NEUTS 63.0 48.0 - 76.0 % [facility] LYMPHS 31.4 18.0 - 41.0 % [facility] MONOS 3.8(L) 4.0 - 11.0 % [facility] EOS 1.0 0.0 - 5.0 % [facility] BASOS 0.4 0.0 - 1.5 % [facility] Granulocytes, immature (%) 0.4 0.0 - 0.9 % [facility] ABSOLUTE NEUTS 6.73 1.92 - 7.60 K/uL [facility] ABSOLUTE LYMPHS 3.35 0.72 - 4.10 K/uL [facility] ABSOLUTE MONOS 0.41 0.16 - 1.10 K/uL [facility] ABSOLUTE EOS 0.11 0.00 - 0.50 K/uL [facility] ABSOLUTE BASOS 0.04 0.00 - 0.15 K/uL [facility] Granulocytes, immature 0.04 0.00 - 0.09 K/uL [facility] Blood 11/05/2024 7:07 PM EDT 11/05/2024 7:18 PM EDT us Alecia Fischer PA-C LAB BLOOD BKR ORDERABLES Fi nal Result Performing Organization Address City/State/[facility] Co de Phone Number [address] [address] * (ABNORMAL) Basic metabolic panel (11/05/2024 7:07 PM EDT) SODIUM 139 133 - 146 mmol/L [facility] CHLORIDE 103 96 - 108 mmol/L [facility] POTASSIUM 3.5 3.3 - 5.1 mmol/L [facility] CO2 24 21 - 35 mmol/L [facility] BUN 8 6 - 19 mg/dL [facility] CREATININE 0.50 0.5 - 1.5 mg/dL [facility] GLUCOSE 119(H) 70 - 99 mg/dL [facility] CALCIUM 9.2 8.4 - 10.3 mg/dL [facility] EGFR >120 >59 mL/min/1.7 3m2 [facility] Comment:Estimated glomerular filtration rate calculated using the CKD-EPI refit equation. ANION GAP 16 10 - 20 mmol/L [facility] Blood 11/05/2024 7:07 PM EDT 11/05/2024 7:18 PM EDT us Alecia Fischer PA-C LAB BLOOD BKR ORDERABLES Fi nal Result [facility] [address] [place] [address] from Last 3 Months Insurance [place] [address] [address] [place] [address] [place] [address] [place] [address] [place] [address] [place] [address] [place] [address] [place] [address] [place] [id number] Care Teams Assistant Toddler Teacher Relationship Specialty Start Date End Date Sea Russell MD [address] [place] [address] [place] [address] PCP - General Internal Medicine 03/25/21 Additional Source Comments The information contained in this document represents components of the legal health record. It is not the complete legal health record.[facility]
== END 2025-02-02 15:35 | disposition home or self-care (01) ==
LOC: HO.HMCH 14:24
PROVIDERS: PCP Internal Medicine
DX: M54.12 Radiculopathy, cervical region (principal); R20.0 Anesthesia of skin; R22.2 Localized swelling, mass and lump, trunk

== ENCOUNTER → 2025-02-02 14:23 | Outpatient (BNVA) | payer OTHER, SELFPAY | PROVIDERS: PCP Internal Medicine | DX: M54.12 Radiculopathy, cervical region (principal); R20.0 Anesthesia of skin; R22.2 Localized swelling, mass and lump, trunk | CPT/HCPCS: 99212 ==

== ENCOUNTER 2025-02-05 13:56 | Outpatient (REF) | payer OTHER, SELFPAY ==
--- NOTE | ~2025-02-05 | US_ITS ---
EXAMINATION: US SOFT TISSUE HEAD AND NECK Limited CLINICAL INFORMATION: R22.2. Localized swelling/mass.. COMPARISON: None available. TECHNIQUE: Linear transducer jacob-scale and color Doppler examination with attention to the region of the right scapula. FINDINGS: No fluid collections. No gross soft tissue mass in the region of concern. No increased vascularity. US/US soft tiss head and/or neck IMPRESSION: No solid or cystic mass. Negative exam.. Electronically signed by: Anil Sam MD 02/05/2025 02:36 PM EST RP
--- OUTSIDE RECORDS SUMMARY | 2025-02-05 22:42 | XMS_ITS | Clinical Summary ---
Author Organization [facility] Address [address] [address] Phone Care Team Providers Care Lab Aid Name Role Phone Sea Russell MD Primary Care Provider [phone] [phone] Allergies No known active allergies Medications No [...] VACCINE (#1) 2024 COVID-19 VACCINE (2 - 2 6 season) 2024 05/28/2020 SMOKING STATUS SCREENING [...] topic Medical Devices Not on file Insurance [facility] [employer] [place] [place] [address] [place] [address] [place] [address] [place] [address] ACO Care Teams Lab Aid Relationship Specialty Start Date End Date Sea Russell MD [address] [place] [address] [place] [address] PCP - General Internal Medicine 03/25/21 Additional Source Comments The information contained in this document represents components of the legal health record. It is not the complete legal health record.[facility]
--- OUTSIDE RECORDS SUMMARY | 2025-02-05 22:42 | XMS_ITS | Clinical Summary ---
Author Organization [address] [facility] Address [address] [place] [address] Phone Care Team Providers Care Head Of Training And Development Name Role Phone Sea Russell MD Primary Care Provider [phone]- [phone] Allergies No known active allergies Medications albuterol [...] Info) Description 03/06/2025 1:45 PM EST Appointment [facility] Xray [address] [place] [address] Health Maintenance Due Date Last [...] patient's age to complete this topic Insurance [facility] Care Teams Head Of Training And Development Relationship Specialty Start Date End Date Sea Russell MD PCP - General Internal Medicine 02/01/24
== END 2025-02-05 13:57 | disposition home or self-care (01) ==
LOC: HO.HMGCX 13:56
PROVIDERS: PCP Internal Medicine; Visit Provider Surgery
DX: R22.2 Localized swelling, mass and lump, trunk (principal)
CPT/HCPCS: 76536

== ENCOUNTER → 2025-02-05 14:11 | Outpatient (BNV) | payer OTHER, SELFPAY | PROVIDERS: PCP Internal Medicine; Visit Provider Radiology Diagnostic Radiology | DX: R22.2 Localized swelling, mass and lump, trunk (principal) | CPT/HCPCS: 76536 ==

== ENCOUNTER 2025-02-07 15:26 | Outpatient (AMB) | payer OTHER, SELFPAY ==
[2025-02-07 15:31] VITALS: BP 110/80; BMI 23.4
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
--- OUTSIDE RECORDS SUMMARY | 2025-02-08 00:05 | XMS_ITS | Clinical Summary ---
Author Organization [address] [facility] Address [address] [place] [address] Phone Care Team Providers Care Securities Trader Name Role Phone Sea Russell MD Primary Care Provider [phone] Allergies No known active allergies Medications albuterol [...] Info) Description 03/06/2025 1:45 PM EST Appointment [facility] [address] [place] [address] Health Maintenance Due Date Last [...] patient's age to complete this topic Insurance [facility] [place] [id number] Care Teams Securities Trader Relationship Specialty Start Date End Date Sea Russell MD PCP - General Internal Medicine 02/01/24
--- OUTSIDE RECORDS SUMMARY | 2025-02-08 00:05 | XMS_ITS | Clinical Summary ---
Author Organization [facility] Address [address] [address] Phone Care Team Providers Care Equipment Or Machinery Cleaner Name Role Phone Sea Russell MD Primary Care Provider [phone] Allergies No known active allergies Medications No [...] topic Medical Devices Not on file Insurance [facility] A[facility] [place] [address] [place] [address] [place] [address] [place] [address] ACO Care Teams Equipment Or Machinery Cleaner Relationship Specialty Start Date End Date Sea Russell MD [address] [place] [address] [place] [address] PCP - General Internal Medicine 03/25/21 Additional Source Comments The information contained in this document represents components of the legal health record. It is not the complete legal health record.[facility]
== END 2025-02-08 16:00 | disposition home or self-care (01) ==
LOC: HO.HSMS 15:27
PROVIDERS: PCP Internal Medicine; Visit Provider Nurse Practitioner Family
DX: F90.9 Attention-deficit hyperactivity disorder, unspecified type (principal); M35.7 Hypermobility syndrome; F07.81 Postconcussional syndrome; G43.009 Migraine without aura, not intractable, without status migrainosus
CPT/HCPCS: 99214

== ENCOUNTER → 2025-02-07 15:26 | Outpatient (BNVA) | payer OTHER, SELFPAY | PROVIDERS: PCP Internal Medicine; Visit Provider Nurse Practitioner Family | DX: F07.81 Postconcussional syndrome (principal); G43.009 Migraine without aura, not intractable, without status migrainosus; F90.9 Attention-deficit hyperactivity disorder, unspecified type; M35.7 Hypermobility syndrome; M25.562 Pain in left knee; Z79.899 Other long term (current) drug therapy | CPT/HCPCS: 99212 ==